=== PATIENT | male | born 1955 | race Caucasian/White ===

== ENCOUNTER 2018-11-14 00:35 | Inpatient (IN) | payer SELFPAY ==
[2018-11-14] MEDS ORDERED: Heparin 25,000 units/D5W 500 ML ONE (00:48)
[2018-11-14] MEDS ORDERED: Insulin Regular 100 units/100 ml in NS IVPB SCH (01:15)
[2018-11-14] MEDS ORDERED: Sodium Chloride 0.9% 1,000 ML IV PRN ×4 (01:32)
[2018-11-14] MEDS ORDERED: Dextrose 5 %-0.45 % NaCl 1,000 ML IV PRN (01:32)
[2018-11-14] MEDS ORDERED: NS 0.9% w/ 20 MEQ KCL 1,000 ML IV PRN ×2 (01:32)
[2018-11-14] MEDS ORDERED: CCU Electrolyte Replacement 1 EACH IVPB ONE (01:32)
[2018-11-14] MEDS ORDERED: Norepinephrine 8 MG/0.9% NS 250 ML IVPB PRN (01:33)
[2018-11-14] MEDS ORDERED: Norepinephrine 8 MG in Dextrose 5% in Water 242 ML IVPB PRN (01:43)
[2018-11-14] MEDS ORDERED: Potassium Chloride 40 MEQ in Sodium Chloride 0.9% 250 ML 250 ML IVPB PRN (01:44)
[2018-11-14] MEDS ORDERED: Potassium Phosphate 12 MMOL in Sodium Chloride 0.9% 250 ML 250 ML IV PRN (01:44)
[2018-11-14] MEDS ORDERED: Magnesium 2 GM/50 ML 2 GM in Premix Bag 1 BAG IVPB PRN (01:44)
[2018-11-14] MEDS ORDERED: Potassium Phosphate 9 MMOL in Sodium Chloride 0.9% 100 ML IVPB PRN (01:44)
[2018-11-14] MEDS ORDERED: Potassium Chloride 20 MEQ TAB PO PRN (01:44)
[2018-11-14] MEDS ORDERED: PHOS-NAK 1 PKT PACK PO PRN ×2 (01:44)
[2018-11-14] MEDS ORDERED: Magnesium Oxide 400 MG TAB PO PRN ×2 (01:44)
[2018-11-14] MEDS ORDERED: Potassium Phosphate 15 MMOL in Sodium Chloride 0.9% 250 ML 250 ML IV PRN (01:44)
[2018-11-14] MEDS ORDERED: Potassium Chloride 40 MEQ in Premix Bag 1 BAG IVPB PRN (01:44)
[2018-11-14] MEDS ORDERED: CCU ELECTROLYTE REPLACEMENT PROTOCOL FS PRN (01:44)
[2018-11-14 01:45] LABS: Anion Gap 21 mmol/L (10-20); BUN (Urea Nitrogen) 41 mg/dL (8.4-25.7); Calc. Creatinine Clearance 0 mL/min (70-130); Calcium 8.4 mg/dL (7.8-10.44); Carbon Dioxide 13 mmol/L (23-31); Chloride 97 mmol/L (98-107); Estimated GFR-MDRD 31; Potassium 3.4 mmol/L (3.5-5.1); Sodium 128 mmol/L (136-145)
[2018-11-14] MEDS ORDERED: HUMULIN R 100 UNITS in Sodium Chloride 0.9% 100 ML IVPB SCH (01:45)
[2018-11-14] MEDS ORDERED: Heparin 10,000 UNITS/ 10 ML VIAL SLOW IVP SCH (01:45)
[2018-11-14] MEDS ORDERED: Heparin 25,000 units/D5W 500 ML IVPB SCH (01:45)
[2018-11-14 01:48] LABS: Glucose 790 mg/dL (80-115)
[2018-11-14 02:20] LABS: Hemoglobin 11.1 g/dL (14.0-18.0); Platelet Count 250 thou/uL (130-400)
[2018-11-14 02:22] LABS: Hemoglobin 11.1 g/dL (14.0-18.0); Mean Corpuscular HGB CONC 32.8 g/dL (32.0-36.0); Mean Corpuscular Hemoglobin 32.2 pg (27.0-31.0); Mean Platelet Volume 7.6 fL (7.4-10.4); Platelet Count 265 thou/uL (130-400); RBC Distribution Width 11.9 % (11.5-14.5); Red Blood Cell (RBC) Count 3.45 mill/uL (4.70-6.10)
[2018-11-14 02:32] LABS: Phosphorus 3.8 mg/dL (2.3-4.7)
[2018-11-14 02:41] LABS: Band 7 % (5-11); Hypochromia SLIGHT = 6-15 cells (100X) (0-5/hpf); Lymphocytes 2 % (21-51); MDiff Complete? YES; Monocytes 3 % (0-10); Neutrophil 88 % (42-75); Platelet Morphology Comment Appears Adequate
[2018-11-14 02:43] LABS: Magnesium 1.8 mg/dL (1.6-2.6)
[2018-11-14 02:46] LABS: ALT (SGPT) 29 U/L (8-55); AST (SGOT) 73 U/L (5-34); Albumin 3.5 g/dL (3.4-4.8); Alkaline Phosphatase 98 U/L (40-150); Anion Gap 21 mmol/L (10-20); BUN (Urea Nitrogen) 41 mg/dL (8.4-25.7); Bilirubin, Direct 0.5 mg/dL (0.1-0.3); Bilirubin, Total 0.7 mg/dL (0.2-1.2); Calc. Creatinine Clearance 0 mL/min (70-130); Calcium 8.7 mg/dL (7.8-10.44); Carbon Dioxide 14 mmol/L (23-31); Chloride 97 mmol/L (98-107); Estimated GFR-MDRD 31; Potassium 3.5 mmol/L (3.5-5.1); Protein, Total 5.5 g/dL (5.8-8.1); Sodium 128 mmol/L (136-145)
[2018-11-14 02:49] LABS: Glucose 784 mg/dL (80-115)
--- NOTE | 2018-11-14 04:08 | HP ---
PRIMARY CARE PHYSICIAN: Out of town. The patient is a [employer] [place]. CHIEF COMPLAINT: Nausea, vomiting and confusion. HISTORY OF PRESENTING ILLNESS: Mr. Marks is a 63-year-old male with past medical history of diabetes and CVA, who presented to the emergency room in [facility] with above-mentioned complaints. History is mainly obtained by discussion with the ER physician as the patient is quite confused and is not able to provide a straight answer to most of my questions. His sisters are present at bedside and they help supplement some of the history. It seems like that Mr. Marks woke up this morning very nauseous and started to throw up. He has been working in the yard for the last 2 or 3 days in the heat. He reports poor appetite and extreme thirst. He did eat some pie today thinking that he might have low blood sugar. He reports compliance with his medications. He denies any fever or chills. He denies any chest pain, but when asked if he had any trouble breathing; he said that yes he did. He denies any swelling or pain in his legs or any recent travel. He has some pain in the right shoulder and complains of dry mouth. He denies any abdominal pain per se or any loose stools. Denies any dizziness or lightheadedness, but his family has noticed that he was very confused. He was brought to the ER at [facility] in [place] and multiple lab abnormalities were found there including a blood sugar over 1000 initially with a repeat blood sugar of 825. His troponin initially was more than 2 and repeat troponin was 5.17. His BUN was 42, creatinine 2.16. Potassium 4.7. Urine had glucose and blood with negative drug screen. His lactic acid was 8.3, ammonia 34. Beta hydroxybutyrate 4.8. His lipase was elevated to 420 and WBCs were 22,000. His chest x-ray did not show any acute changes and a CT scan of the brain was also done, which was once again negative for anything acute. He was initially on Levophed and received 5 L of normal saline, but was eventually weaned off Levophed. Because of the elevated troponin, he was started on heparin drip and was given 325 mg of aspirin. He was also started on insulin drip, because of diabetic ketoacidosis and was given Zosyn given the WBC count of 22,000. Upon presentation to our emergency room, his blood pressure was 110/54 with respirations 18, temperature 98, saturating 98% on room air, heart rate of 94. Blood work was repeated here, which once again confirmed WBCs at 22,000 with 88% neutrophils. Serum chemistry showing blood sugar of 784, creatinine 2.15, sodium 128. Lactic acid 7.3 and repeat troponin of 24,000. Lipase is 435, beta hydroxybutyrate 2.53. He was continued on heparin and insulin drip and is now being admitted to CCU for further evaluation and care. A 12-lead EKG did not show any acute ST or T-wave changes. PAST MEDICAL HISTORY: 1. History of 1 CVA and multiple mini strokes as per the patient. 2. Diabetes mellitus. 3. Hypertension. 4. GERD. PAST SURGICAL HISTORY: 1. Penile implant. 2. Tonsillectomy. PSYCHIATRIC HISTORY: Depression. SOCIAL HISTORY: He smokes one pack of cigarettes per day. He used to drink heavily, but has quit drinking about 3 years ago. He denies any drug abuse. FAMILY HISTORY: Denies any history of pancreatitis or cancer. His father had some sort of heart disease, but they do not really remember what type. ALLERGIES: NO KNOWN MEDICATION ALLERGIES. CURRENT MEDICATIONS: As listed in the ER; 1. Gabapentin 100 mg daily. 2. Sertraline 50 mg daily. REVIEW OF SYSTEMS: A 14-point review of system is done. It is limited because of patient's confusion, but it is largely negative except for those mentioned in the history and physical. LABORATORY DATA: A 12-lead EKG by my review shows sinus tachycardia at 101 beats per minute. QTc interval 479 milliseconds. Left anterior fascicular block. No acute ST or T-wave changes. Beta hydroxybutyrate is 2.53. WBC is 22, with 88% neutrophils, hemoglobin 11.1, platelet count of 265. Serum chemistry shows sodium of 128, chloride 97, bicarb 14, anion gap 21, BUN 41, creatinine 2.15, blood sugar 784. Lactic acid 7.3. Phosphorus and magnesium are normal. AST is slightly elevated to 73, otherwise LFTs are within normal limits. Troponin is 24.95. Lipase 435. PHYSICAL EXAMINATION: VITAL SIGNS: Most recent blood pressure 110/54, pulse of 94, respirations 18, saturating 98% on room air. GENERAL: He is confused, but he is trying to discuss his care, but keeps repeating information about his ex . He is able to follow simple commands and is in no acute distress. He appears somewhat tired and weak. HEENT: Mucous membrane is dry. No oropharyngeal exudate or erythema. Head is normocephalic and atraumatic. Pupils are equal and reactive to light and accommodation. Extraocular movement intact. NECK: Supple without any lymphadenopathy, JVD, or bruit. CHEST: Clear to auscultation without any wheezing, rales, or rhonchi. Rate rhythm is regular without any murmurs, rubs, or gallops. ABDOMEN: Soft, nontender, nondistended with positive bowel sounds. Garcia catheter is in place with clear urine in it. EXTREMITIES: Free of any cyanosis, clubbing, or edema. NEUROLOGICAL: Nonfocal, but he appears to be confused, but he is oriented to self, place and person. SKIN: Free of any rashes or bruises. Feels warm and dry to touch. PSYCHIATRIC: Normal affect. IMPRESSION AND PLAN: 1. Diabetic ketoacidosis. The patient will be continued on insulin drip that was started in the ER. He will be treated as per the diabetic ketoacidosis protocol along with IV fluids, IV insulin with frequent BMP checks and q.1 hour Accu-Cheks. He will be admitted to critical care unit. He will be n.p.o. for now. 2. Non ST elevation myocardial infarction. It is unclear whether this is a demand ischemia from sepsis versus a true type 2 myocardial infarction. He will be continued on heparin drip. We will obtain a transthoracic echo and consult Cardiology in the morning. He does have multiple risk factors and has not had a cardiac workup done. Also, check a BNP. EKG does not show any acute ST elevation myocardial infarction. We will also check a CPK to rule out rhabdomyolysis as a cause of elevated troponin as he has evidence of severe dehydration as well. 3. Acute pancreatitis. We will keep him n.p.o. and give him IV fluids. CT scan cannot be done because of renal insufficiency at this time. We will obtain an abdominal ultrasound to rule out any abscess. We will request consultation with Gastroenterology and obtain a urine drug screen. The patient reports that he has quit drinking about 3 years ago, but he can very well have some liver cirrhosis versus gallbladder stones as a cause of his acute pancreatitis. 4. Sepsis. No clear source of infection is evident at this time. The elevated lactic acid most likely is secondary to ongoing multiple issues including pancreatitis, severe dehydration, diabetic ketoacidosis, and non-ST elevation myocardial infarction. Sepsis workup will be initiated in the form of blood cultures. Rule out abdominal abscess as well. Empiric IV antibiotics will be used for now until sepsis has been ruled out or ruled in. 5. Acute renal insufficiency. This is likely secondary to severe dehydration and diabetic ketoacidosis. He will be resuscitated and we will order a renal ultrasound to rule out any other causes of renal insufficiency. Avoid any nephrotoxic medications and repeat labs in the morning and keep a close eye on it. 6. High anion gap metabolic acidosis. This was due to diabetic ketoacidosis. We will treat the underlying cause. 7. Hyponatremia. This is pseudohyponatremia due to hyperglycemia. We will treat him as per the diabetic ketoacidosis protocol. 8. Tobacco abuse. The patient has been counseled. We will check a urine drug screen as well. 9. Hypotension. At this time a septic versus cardiogenic versus hypovolemic shock is in differential. He will be resuscitated with IV fluids. His blood pressure has much improved. Empiric IV antibiotics have been ordered. We will use Levophed p.r.n. to support his blood pressure, if necessary. I do not suspect adrenal insufficiency at this time. He has no history of same. 10. Diabetes mellitus type 2. As per number #1, he would be on insulin drip for his diabetic ketoacidosis. DISPOSITION: Mr. Marks is currently being admitted to CCU for multiple acute issues. He has high risk of decompensation. I have discussed the care with family at bed side. TIME SPENT: Total time spent in taking care of this patient, 45 minutes. LEVEL OF COMPLEXITY: High. LEVEL OF RISK: High. Job ID: [id number]
[2018-11-14] MEDS: Vancomycin HCl 1 GM in Premix Bag 1 BAG IVPB SCH ×2 (04:41→16:42)
[2018-11-14 05:53] LABS: Anion Gap 16 mmol/L (10-20); BUN (Urea Nitrogen) 40 mg/dL (8.4-25.7); Calc. Creatinine Clearance 46 mL/min (70-130); Calcium 8.7 mg/dL (7.8-10.44); Carbon Dioxide 16 mmol/L (23-31); Chloride 100 mmol/L (98-107); Estimated GFR-MDRD 35; Potassium 3.5 mmol/L (3.5-5.1); Sodium 128 mmol/L (136-145)
[2018-11-14 05:56] LABS: Glucose 689 mg/dL (80-115)
[2018-11-14 06:04] LABS: Bacteria/HPF 1+ HPF (None Seen); Bilirubin Negative (Negative); Blood, Urine 2+ (Negative); Clarity Clear (Clear); Glucose, Urine (Dipstick) Greater than 1000 mg/dL (Negative); Leukocyte Negative Leu/uL (Negative); Nitrite Negative (Negative); Protein, Urine (Dipstick) Negative (Neg-Trace); Squamous Epithelial 0-3 HPF (0-3); Urobilinogen Normal mg/dL (Less than 2); WBC/HPF 21-50 HPF (0-3)
[2018-11-14 06:07] LABS: Urine Culture Reflex Yes Yes
[2018-11-14 06:08] LABS: Amphetamine Not Detected (NotDetected); Barbiturates Screen Not Detected (NotDetected); Benzodiazepine Screen Not Detected (NotDetected); Cocaine Metabolite Screen Not Detected (NotDetected); Medtox Control Line Valid? VALID (VALID); Medtox Reader # READER 1; Methadone Not Detected (NotDetected); Methamphetamine Not Detected (NotDetected); Opiate Screen Not Detected (NotDetected); Oxycodone Screen Not Detected (NotDetected); Phencyclidine (PCP) Not Detected (NotDetected); THC/Cannabinoid Screen Not Detected (NotDetected); Tricyclic Screen Not Detected (NotDetected)
[2018-11-14] MEDS: Piperacillin/Tazobactam 3.375 GM in Sodium Chloride 0.9% 100 ML IVPB SCH ×4 (06:12→23:11)
[2018-11-14 06:28] LABS: Lactic Acid 3.1 mmol/L (0.5-2.2)
[2018-11-14 06:31] LABS: Glucose 593 mg/dL (80-115)
--- NOTE | 2018-11-14 08:26 | ULT ---
PRELIMINARY REPORT/[facility]/EMERGENCY AFTER HOURS PROCEDURE: EXAM: US Abdomen Limited, Right Upper Quadrant EXAM DATE/TIME: 11/14/2018 1:59 AM CLINICAL HISTORY: 63 years old, male; Nausea and vomiting; Abdominal pain; Generalized TECHNIQUE: Imaging protocol: Real-time ultrasound of the abdomen with image documentation. Examination was focus ed on the right upper quadrant. COMPARISON: No relevant prior studies available. FINDINGS: Liver: Normal. No masses. Gallbladder: There is gallbladder with thickening/pericholecystic fluid measuring up to 6 mm. A posit nely sonographic Do sign is reported. No cholelithiasis. Common bile duct: CBD measures 3 mm in diameter. Pancreas: Pancreas is poorly visualized. Right kidney: Right kidney measures 11.4 x 4.7 x 5.9 cm. IMPRESSION: Pericholecystic fluid with positive sonographic Do sign suspicious for acute cholecystitis. No ch olelithiasis is visualized. Thank you for allowing us to participate in the care of your patient. Dictated and Authenticated by: Rusty Tapia MD 11/14/2018 3:22 AM Central Time ([place] & [place]) FINAL REPORT EMERGENCY AFTER HOURS GALLBLADDER ULTRASOUND: FINDINGS/IMPRESSION: I agree with the preliminary report given by Dr. Rusty Tapia of [facility]. POS: [facility]
[2018-11-14] MEDS: D5 1/2 NS w/20 mEq KCL 1,000 ML IV PRN ×2 (08:59→13:44)
--- NOTE | 2018-11-14 09:34 | CON ---
DATE OF CONSULTATION: HISTORY OF PRESENT ILLNESS: The patient is an unfortunate 63-year-old gentleman, who presented with nausea, vomiting, who was noted to have elevated cardiac enzymes. The patient has a previous history of multiple cerebrovascular accidents. Unfortunately, the patient has not had a close medical care. He was in his usual state of health when he started feeling more nauseated and he started vomiting. He came to the emergency room for evaluation to have marked hyperglycemia. The patient denied having any chest discomfort. He reports recently stopping taking his aspirin. PAST MEDICAL HISTORY: 1. CVA. 2. Hypertension. 3. Diabetes mellitus. 4. reflux. PAST SURGICAL HISTORY: He has had penile surgery and tonsillectomy. SOCIAL HISTORY: The patient smokes 1 pack per day. ALLERGIES: NO KNOWN DRUG ALLERGIES. MEDICATIONS: Gabapentin 100 daily, sertraline 50 daily. PHYSICAL EXAMINATION: GENERAL: This is a well-developed gentleman, in no acute distress. VITAL SIGNS: Blood pressure is 100/58. NECK: Showed no jugular venous distention. LUNGS: Clear to auscultation. HEART: Regular rate and rhythm. Normal S1 and S2. 1/6 systolic murmur. ABDOMEN: Nondistended. EXTREMITIES: Showed trace edema. LABORATORY DATA: Sodium 128, potassium 3.5, chloride 100, bicarbonate 16, BUN 40, creatinine 1.95, glucose 593. His troponin was 44.1. His white blood cell count was 22.0, hemoglobin 11.1, hematocrit 33.8, platelets 265. His PTT was 69.5. IMAGING STUDIES: His EKG revealed normal sinus rhythm with left anterior fascicular block. IMPRESSION: 1. Myocardial infarction . 2. Diabetic ketoacidosis. 3. Sepsis. 4. Diabetes mellitus. 5. History of cerebrovascular accident. 6. Hypertension. 7. Pancreatitis. 8. Renal insufficiency. 9. Tobacco abuse. 10. Depression. This gentleman presents with a non-Q-wave myocardial infarction. He has diabetic ketoacidosis and pancreatitis. He has not been receiving any p.o. medication. At this time, would give him aspirin per rectum. Gastrointestinal evaluation is pending. We will check an echocardiogram. The patient will continue on heparin. We will proceed with cardiac catheterization when the patient stabilizes. The patient's prognosis is guarded. We will follow this patient with you through his hospitalization. Critical care note time 30 minutes. Job ID: [id number]
[2018-11-14] MEDS ORDERED: Aspirin 300 MG Suppository PR SCH (09:45)
--- NOTE | 2018-11-14 10:21 | CT ---
CT BRAIN WITHOUT CONTRAST: HISTORY:CVA in the past. Neurologic deficit. COMPARISON:None FINDINGS: There are foci of decreased attenuation in the periventricular white matter, consistent with chronic small vessel ischemic disease. There is an old lacunar infarction in the left side of the pratima. No evidence of acute infarct, hemorrhage, midline shift or abnormal extra-axial fluid collections is seen. The ventricular size is appropriate and the basilar cisterns are patent. The bony calvarium is intact. There is mucosal disease in the paranasal sinuses. IMPRESSION: No CT evidence of acute intracranial process.
--- NOTE | 2018-11-14 10:28 | ULT ---
BILATERAL RENAL ULTRASOUND COMPLETE: Date: 11/14/18 HISTORY: WICHO (acute kidney injury). COMPARISON: None. FINDINGS: Right kidney measures 12.1 x 5.7 x 5.6 cm. Left kidney measures 11.5 x 6.9 x 5.6 cm. No renal hydronephrosis. Urinary bladder is unremarkable with a Garcia catheter in place, being nearly empty. IMPRESSION: Unremarkable bilateral renal ultrasound. No renal hydronephrosis. POS: [facility]
[2018-11-14 10:38] LABS: Anion Gap 14 mmol/L (10-20); BUN (Urea Nitrogen) 35 mg/dL (8.4-25.7); Calc. Creatinine Clearance 56 mL/min (70-130); Calcium 8.6 mg/dL (7.8-10.44); Carbon Dioxide 18 mmol/L (23-31); Chloride 106 mmol/L (98-107); Estimated GFR-MDRD 45; Glucose 456 mg/dL (80-115); Potassium 3.7 mmol/L (3.5-5.1); Sodium 134 mmol/L (136-145)
[2018-11-14] MEDS: NS 0.9% w/ 20 MEQ KCL 1,000 ML IV SCH ×2 (18:38→22:21)
[2018-11-14] MEDS ORDERED: Dextrose 50% Abboject 50 ML SYRINGE IVP PRN (18:52)
[2018-11-14] MEDS ORDERED: Dextrose 5% in Water 1,000 ML IV PRN (18:52)
[2018-11-14] MEDS ORDERED: Lorazepam 0.5 MG TAB PO PRN (19:42)
[2018-11-14] MEDS: Insulin Glargine 10 UNITS in Pre-Filled Syringe SC SCH (20:25)
[2018-11-14] MEDS: Atorvastatin Calcium 40 MG TAB PO SCH (20:25)
[2018-11-15 02:20] LABS: Vancomycin, Trough 8.8 ug/mL
[2018-11-15 02:37] LABS: Anion Gap 12 mmol/L (10-20); BUN (Urea Nitrogen) 22 mg/dL (8.4-25.7); Calc. Creatinine Clearance 78 mL/min (70-130); Calcium 8.9 mg/dL (7.8-10.44); Carbon Dioxide 18 mmol/L (23-31); Chloride 111 mmol/L (98-107); Estimated GFR-MDRD 65; Glucose 281 mg/dL (80-115); Sodium 136 mmol/L (136-145)
[2018-11-15] MEDS: Vancomycin HCl 1 GM in Premix Bag 1 BAG IVPB SCH (03:17)
--- NOTE | 2018-11-15 03:26 | CON ---
DATE OF CONSULTATION: HISTORY OF PRESENT ILLNESS: Mr. Marks is a 63-year-old male, who has had diabetes since he was in his early 20s. He says he misplaced his Accu-Chek device. His reports that he is noncompliant with monitoring glucoses. He presented with severe hyperglycemia and a metabolic acidosis consistent with DKA. His mental status is improving in his lab work is improving. He remains on insulin drip. He is admitted to the critical care unit. PAST MEDICAL HISTORY: Remarkable for; 1. CVA. 2. History of tobacco use in spite of multiple central nervous system vascular events and diabetes for essentially 35 years. 3. Hypertension. 4. Reflux disease. 5. History of tonsillectomy. 6. History of depression. 7. History of heavy alcohol use in the past, none for 3 years. Reportedly, he is not a drug user. He is a smoker. 8. Elevated lipase associated with DKA FAMILY HISTORY: Negative for lung disease in early age. ALLERGIES: REPORTS NO DRUG ALLERGIES. MEDICATIONS: Prior to admission are Zoloft and gabapentin presumably for peripheral neuropathy. There is no mention of insulin on the H and P, but the family says he is supposed to be on insulin. REVIEW OF SYSTEMS: Otherwise negative, although not entirely reliable. PHYSICAL EXAMINATION: GENERAL: He is in no distress. HEENT: Pupils are equal. Sclerae are anicteric. NECK: Supple. VITAL SIGNS: Heart rates in the 80s, blood pressure 107/61, respiratory rates in the teens, oximetry is 99. LUNGS: Clear. HEART: Regular rhythm. S1 and S2 are normal. ABDOMEN: Soft and nontender. EXTREMITIES: Without clubbing, cyanosis, or edema. NEURO: Grossly nonfocal. LABORATORY DATA: Hemoglobin is 11.1, white count 22, platelets 250. Sodium 134 , potassium 3.7, chloride 106, bicarb 18, BUN 35, creatinine 1.58. IMPRESSION: 1. Diabetic ketoacidosis. 2. Hyperosmolar hyperglycemia. 3. Acute on chronic kidney disease. 4. Probable peripheral neuropathy. 5. Ongoing tobacco use in spite of multiple central nervous system vascular events. 6. History of stroke and transient ischemic attacks in the past. 7. Noncompliance with medical management of his diabetes. I am amazed he has not lost legs at this point or developed renal failure. PLAN: We will continue to follow along with the other physicians caring for him while he is in the Critical Care Unit. I think maybe within 24 hours, he will be a candidate to transfer out of the ICU. Job ID: [id number] [id number]
[2018-11-15] MEDS: Piperacillin/Tazobactam 3.375 GM in Sodium Chloride 0.9% 100 ML IVPB SCH ×2 (05:44→11:51)
[2018-11-15] MEDS: Insulin Regular 300 UNITS/3 ML VIAL SC PRN ×4 (06:11→20:59)
[2018-11-15] MEDS ORDERED: Communication Order-Pharmacy FS SCH (08:30)
[2018-11-15] MEDS: Aspirin 81 mg Enteric Coated Tablet PO SCH (08:36)
[2018-11-15] MEDS: Insulin Glargine 10 UNITS in Pre-Filled Syringe SC SCH (08:37)
--- NOTE | 2018-11-15 09:02 | CON ---
DATE OF CONSULTATION: 11/14/2018 REASON FOR CONSULTATION: Nausea, vomiting, and evidence of pancreatitis on blood testing. HISTORY OF PRESENT ILLNESS: Mr. Michel Marks is a 63-year-old male, who is known to have diabetes mellitus for many years. The patient does take insulin. He says he is very poorly compliant and non-disciplined in terms of his medicinal intake. The patient developed nausea and vomiting yesterday morning and was brought to ER in [place]. The patient was found to have evidence of diabetic ketoacidosis. Blood sugars were more than 1000, he was acidotic. He also had a serum lipase . He also has had elevated troponin level and had EKG done and was found to have evidence of non-STEMI myocardial infarction. He has been seen by Dr. Greg Fuchs, Cardiology Service. The plan is being made to do a cardiac catheterization when he is stable. In terms of diabetes, it is a kind of uncontrolled and is still on IV fluids. He is awake, alert, communicative. He denies abdominal pain or nausea or vomiting today. He says he was not having abdominal pain before. The patient actually would likely to eat or drink something as he feels hungry. 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 Blood sugar was more than 1000 on admission. Today, the Chem panel shows blood sugar is coming to around 284 today. His lipase is coming down to 347. Lytes are serum sodium 134, potassium 3.7, chloride 106, bicarb 18, BUN is 34, creatinine 1.58, calcium 8.6. Troponin is very high at 44.170. CPK 927, AST 73, ALT 29. The patient was seen in the room along with the patient's family. The family tells me he stopped drinking completely 2 years ago. He does not drink for 2 years. Before that he has history of alcohol intake and alcohol abuse for many years. The patient had abdominal sonogram on admission because of elevated lipase. The sonogram showed thickening of gallbladder wall, but no gallstones seen. The pancreas was poorly visualized. The patient has no prior history of any pancreatitis. He denies abdominal pain, nausea, or vomiting in the past. He also has no history of heart disease from before and he says he had an EKG done and the EKG was noted to be normal in the past but some time ago. At the time of the consultation, he appears very comfortable. He is awake, alert, and communicative. Denies any chest pain, abdominal pain, nausea, or vomiting. ALLERGIES: NONE. SOCIAL HISTORY: The patient smokes 1/2 packet of cigarettes per day. Used to drink alcohol, he completely stopped drinking 2 years ago as per the patient's sister. No history of drug abuse. MEDICAL ILLNESSES: 1. History of CVA with multiple mini strokes in the past. 2. Diabetes mellitus. 3. Hypertension. 4. Chronic acid reflux. PAST SURGICAL HISTORY: 1. Penile implant. 2. Tonsillectomy. PSYCHIATRIC HISTORY: History of depression. FAMILY HISTORY: Father with heart disease. No family history of any colon cancer or any malignancy. No history of any CVA or heart attack. MEDICATIONS: Medication list reviewed, which includes; 1. Gabapentin. 2. Zoloft 50 once a day. REVIEW OF SYSTEMS: Ten-point system reviewed; CONSTITUTIONAL: No history of any fever. His energy level is good, but he has history of weight loss of nearly 100 pounds over the last year or so. HEAD: No chronic headache. Positive history of TIA. No history of syncope. No dizziness. ENT: No impaired vision. No hearing loss. No nose bleeds. No sore throat or dysphagia. NECK: No stiffness or pain. CARDIOVASCULAR SYSTEM: No chest pain. No palpitation. No dyspnea, orthopnea, or PND. RESPIRATORY SYSTEM: No history of any chronic coughing, hemoptysis, or dyspnea. GI: No abdominal pain. No nausea or vomiting. : No dysuria or hematuria. MUSCULOSKELETAL: Nonrelevant. NEUROENDOCRINE: Nonrelevant. PSYCHIATRIC: History of depression. PHYSICAL EXAMINATION: GENERAL: He is awake, alert, and communicative. He is in no acute distress. VITAL SIGNS: Very stable. Pulse is 88, blood pressure 110/70. HEENT: Conjunctivae are clear. NECK: Supple. No adenitis or thyromegaly noted. CARDIOVASCULAR: First and second heart sounds are normal. LUNGS: Clear to auscultation. ABDOMEN: Soft. Abdomen is nondistended. Abdomen is nontender. No organomegaly or masses. Bowel sounds normal. EXTREMITIES: Reveal no edema. CENTRAL NERVOUS SYSTEM: Grossly within normal limits. LABORATORY DATA: The admitting labs are markedly abnormal. He was severely acidotic with a CO2 of 14, BUN was 41, creatinine 2.15. Lytes, sodium 128, potassium 3.5, chloride 97, glucose was more than 784, lactic acid 7.3, calcium 8.7, bilirubin is 0.7, AST slightly high at 73, ALT 29, alkaline phosphatase 98. Troponin was very high at 24.950, gone up to 44. EKG does show evidence of non-STEMI myocardial infarction. CLINICAL IMPRESSION: 1. Diabetic ketoacidosis, resolving. 2. Elevated lipase, most likely from diabetic ketoacidosis elevation of the pancreatic enzymes. At the present time, he has no signs or symptoms of pancreatitis. 3. Non-ST myocardial infarction, seen by Cardiology. 4. Volume depletion. 5. History of alcohol abuse. RECOMMENDATIONS: 1. Discontinue n.p.o. 2. Clear liquid diet. 3. Advance diet as tolerated. From GI standpoint, I do not feel he has acute pancreatitis. Presently his symptoms seem consistent more with uncontrolled diabetes and also myocardial infarction. I will follow along with you for the next couple of days and see if he has any GI symptoms. If he tolerates clear liquid diet, I will advance diet to a diabetic diet later on today or tomorrow morning. Job ID: [id number]
--- NOTE | 2018-11-15 11:48 | PRG ---
DATE OF SERVICE: 11/15/2018 SUBJECTIVE: Mr. Marks still is a little dysarthric. OBJECTIVE: VITAL SIGNS: Heart rate in the 70s, blood pressure 117/78, respiratory rate in the teens, and oximetry is 97%. GENERAL: His diet is being advanced to a diabetic diet. LUNGS: Clear. HEART: Regular rhythm. S1 and S2 are normal. ABDOMEN: Soft and nontender. EXTREMITIES: Without edema. NEUROLOGIC: Grossly nonfocal. LABORATORY DATA: Sodium 136, potassium 5, chloride 111, bicarb 18, BUN 22, creatinine 1.14, and glucose 281. IMPRESSION: 1. Status post hyperosmolar coma. 2. Diabetic ketoacidosis. 3. Hyperchloremic acidosis now secondary to volume resuscitation, less likely renal tubular acidosis. 4. Marginal compliance to management of his diabetes. He is stable to move out of the critical care unit in my opinion. Apparently, the manager sustainability want to perform cardiac catheterization tomorrow. Job ID: [id number]
--- NOTE | 2018-11-15 12:29 | PDOC.HOSPP ---
- Subjective Subjective: 64 y/o male with prior multiple CVA's, DM and others admitted due to intractable nausea and vomiting associated with AMS and ill feeling. Found to have hypotension, hyperglycemia blood glucose above 1000, WICHO and with elevated Lipase and troponin. Treated with IVF, pressors, and insulin infusion with improvement. Feeling better and complains of hunger. No fever, chest pain, paplpitation or hematesis or dysuria. - Objective Vital Signs & Weight: Vital Signs (12 hours) Temp 11/15/18 08:00 99.3 F 11/15/18 04:00 98.6 F Weight Weight 179 lb 0.246 oz Most Recent Monitor Data Heart Rate from ECG 80 NIBP 115/65 NIBP BP-Mean 81 Respiration from ECG 19 SpO2 98 I&O: 11/14/18 11/15/18 11/16/18 06:59 06:59 06:59 Intake Total 324 5140 1034 Output Total 700 4410 590 Balance -376 730 444 Result Diagrams: 11/14/18 01:53 11/15/18 01:54 Additional Labs: Accuchecks 11/15/18 11/15/18 11/14/18 09:16 06:09 20:19 POC Glucose 312 H 276 H 183 H 11/14/18 11/14/18 11/14/18 18:35 17:32 16:30 POC Glucose 174 H 258 H 271 H 11/14/18 11/14/18 11/14/18 15:14 13:44 12:39 POC Glucose 320 H 284 H 414 H ROS - Review of Systems All systems: All other ROS were reviewed and found negative. - Medication Medications: Active Medications Generic Name Dose Route Start Last Admin Trade Name Freq PRN Reason Stop Dose Admin Aspirin 81 mg 11/15/18 09:00 11/15/18 08:36 Ecotrin PO 81 mg DAILY GABRIEL Administration Atorvastatin Calcium 40 mg 11/14/18 21:00 11/14/18 20:25 Lipitor PO 40 mg HS GABRIEL Administration Heparin Sodium/Dextrose 500 mls @ 0 mls/hr 11/14/18 01:45 11/15/18 05:43 Heparin 25,000 Units/D5w 500 Ml IVPB 500 mls INF GABRIEL Administration Protocol Per Protocol Insulin Human Regular 0 units 11/14/18 18:52 11/15/18 06:11 Humulin R SC 6 units .MODERATE SLIDING SC PRN Administration MODERATE SLIDING SCALE Protocol Lorazepam 0.5 mg 11/14/18 19:42 11/14/18 20:25 Ativan PO 11/15/18 19:43 0.5 mg ONE PRN Administration Anxiety/Agitation Sertraline HCl 200 mg 11/15/18 09:00 11/15/18 10:15 Zoloft PO 200 mg DAILY GABRIEL Administration Sodium Chloride 10 ml 11/14/18 09:00 11/15/18 10:16 Flush - Normal Saline IVF 10 ml Q12HR GABRIEL Administration - Exam awake alert Eye: PERRL, anicteric sclera ENT: normocephalic atraumatic Neck: symmetric, no JVD Heart: RRR Respiratory: CTAB, no wheezes, no rales, no ronchi Gastrointestinal: soft, non-tender, non-distended, normal bowel sounds Extremities: no cyanosis, no clubbing, no edema Neurological: CN's grossly intact, no focal deficits (mild dysarrthria noted) Psychiatric: normal affect Hosp A/P (1) Hypotension Status: Acute (2) SIRS (systemic inflammatory response syndrome) Code(s): R65.10 - SIRS OF NON-INFECTIOUS ORIGIN W/O ACUTE ORGAN DYSFUNCTION Status: Acute (3) Acute non-ST elevation myocardial infarction (NSTEMI) Code(s): I21.4 - NON-ST ELEVATION (NSTEMI) MYOCARDIAL INFARCTION Status: Acute (4) Elevated lipase Code(s): R74.8 - ABNORMAL LEVELS OF OTHER SERUM ENZYMES Status: Acute (5) Dehydration with hyponatremia Code(s): E87.1 - HYPO-OSMOLALITY AND HYPONATREMIA Status: Acute (6) WICHO (acute kidney injury) Code(s): N17.9 - ACUTE KIDNEY FAILURE, UNSPECIFIED Status: Acute (7) DKA (diabetic ketoacidoses) Code(s): E11.10 - TYPE 2 DIABETES MELLITUS WITH KETOACIDOSIS WITHOUT COMA Status: Acute (8) Hyperglycemia Code(s): R73.9 - HYPERGLYCEMIA, UNSPECIFIED Status: Acute (9) Hyperchloremic acidosis Code(s): E87.2 - ACIDOSIS Status: Acute (10) Acute metabolic encephalopathy Code(s): G93.41 - METABOLIC ENCEPHALOPATHY Status: Acute - Plan Change IV fluid to bicarb containing fluid. Increase lantus to 20 unit bid. DC antibiotics. Advance diet as tolerated. Appreviate GI and cardiology input. For Cardiac cath tomorror. Continue antithrombotic therapy with ASA and heparin infusion. Monitor C/C and BMP
[2018-11-15] MEDS ORDERED: [UNRECOGNIZED DRUG - OTHER] SC SCH (12:30)
[2018-11-15] MEDS ORDERED: INSULIN GLARGINE SC SCH (12:30)
[2018-11-15] MEDS: Sodium Bicarbonate 75 MEQ in Sodium Chloride 0.45% 1,000 ML IV SCH (17:14)
--- NOTE | 2018-11-15 18:35 | PRG ---
DATE OF SERVICE: 11/15/2018 SUBJECTIVE: This is a 63-year-old hospitalized with uncontrolled diabetes mellitus, diabetic ketoacidosis. He was also found to have evidence of acute MA by elevated troponin level on EKG. He was seen by Cardiology. He did not have any chest pain or any difficulty breathing. There is no abdominal pain. No nausea or vomiting. His blood sugar is markedly improved today. LABORATORY DATA: From today shows lytes are normal. CO2 is 18, BUN is 22, creatinine is 1.14, glucose is 281, and calcium 8.9. PHYSICAL EXAMINATION: GENERAL: Appears comfortable. VITAL SIGNS: Stable. CARDIOVASCULAR AND LUNGS: Within normal limits. ABDOMEN: Soft. No organomegaly. No tenderness. No masses. RECOMMENDATIONS: 1. Advance diet to a diabetic diet. 2. We will sign off from today. If he has any GI problems, please call me back. Job ID: [id number]
[2018-11-15] MEDS: Insulin Glargine 20 UNITS in Pre-Filled Syringe 1 EACH SC SCH (20:56)
[2018-11-15] MEDS: Atorvastatin Calcium 40 MG TAB PO SCH (20:56)
[2018-11-15] MEDS: Lorazepam 0.5 MG TAB PO PRN (21:58)
[2018-11-16] MEDS: Sodium Bicarbonate 75 MEQ in Sodium Chloride 0.45% 1,000 ML IV SCH (01:39)
[2018-11-16] MEDS ORDERED: Aspirin 81 mg Enteric Coated Tablet ONE (05:45)
[2018-11-16] MEDS: Aspirin 81 mg Enteric Coated Tablet PO SCH (05:47)
[2018-11-16 05:50] LABS: #Eosinphils 0.1 thou/uL (0.0-0.7); #Lymphocytes 1.5 thou/uL (1.20-3.40); #Monocytes 0.6 thou/uL (0.11-0.59); #Neutrophils 6.9 thou/uL (1.40-6.50); %Basophils 0.2 % (0.0-1.0); %Eosinophils 0.8 % (0.0-10.0); %Lymphocytes 16.8 % (21.0-51.0); %Neutrophils 76.1 % (42.0-75.0); Hemoglobin 10.7 g/dL (14.0-18.0); Mean Corpuscular HGB CONC 34.1 g/dL (32.0-36.0); Mean Corpuscular Hemoglobin 32.3 pg (27.0-31.0); Mean Corpuscular Volume 94.8 fL (78.0-98.0); Mean Platelet Volume 7.4 fL (7.4-10.4); Platelet Count 188 thou/uL (130-400); White Blood Cell (WBC) Count 9.1 thou/uL (4.8-10.8)
[2018-11-16 06:12] LABS: Anion Gap 9 mmol/L (10-20); BUN (Urea Nitrogen) 11 mg/dL (8.4-25.7); Calc. Creatinine Clearance 120 mL/min (70-130); Calcium 8.7 mg/dL (7.8-10.44); Carbon Dioxide 28 mmol/L (23-31); Chloride 108 mmol/L (98-107); Estimated GFR-MDRD Greater than 90; Glucose 148 mg/dL (80-115); Potassium 3.5 mmol/L (3.5-5.1); Sodium 141 mmol/L (136-145)
[2018-11-16 06:32] LABS: Magnesium 1.7 mg/dL (1.6-2.6)
[2018-11-16] MEDS ORDERED: Fentanyl 100 MCG/2 ML VIAL ONE (08:35)
[2018-11-16] MEDS ORDERED: Midazolam HCl 2 mg/2 ml Vial ONE (08:35)
[2018-11-16] MEDS ORDERED: Lidocaine 1% (PF) 30 ML VIAL ONE (08:35)
[2018-11-16] MEDS ORDERED: Iopamidol 370 76% 100 ML VIAL ONE (11:00)
[2018-11-16] MEDS: Insulin Glargine 20 UNITS in Pre-Filled Syringe 1 EACH SC SCH ×2 (13:11→21:01)
[2018-11-16] MEDS ORDERED: Sodium Chloride 0.45% 1,000 ML IV SCH (14:45)
[2018-11-16] MEDS: Carvedilol 6.25 MG TAB PO SCH (16:33)
[2018-11-16] MEDS: Insulin Regular 300 UNITS/3 ML VIAL SC PRN (16:33)
--- NOTE | 2018-11-16 17:20 | PRG ---
DATE OF SERVICE: 11/16/2018 SUBJECTIVE: Michel Marks is little less dysarthric again today. OBJECTIVE: VITAL SIGNS: He is afebrile. Heart rate is in the 70s, blood pressure 149/81, and respiratory rate 18. LUNGS: Clear. HEART: Regular rhythm. S1 and S2 are normal. ABDOMEN: Soft and nontender. EXTREMITIES: Without edema. LABORATORY DATA: White count 9.1, hemoglobin 10.7, and platelets 188. Sodium 141, potassium 3.5, chloride 108, bicarb 28, BUN 11, and creatinine 0.74. IMPRESSION: 1. Status post presentation with hyperosmolar hyperglycemia mixed with diabetic ketoacidosis. 2. Tobacco use up until this admission. 3. History of cerebrovascular accident in the past. 4. Coronary artery disease, felt to be amenable to bypass. PLAN: 1. I would recommend that he be more independent ambulatory, to be off cigarettes for 1 to 2 weeks, and have a better glucose control for a prolonged period of time before we proceed with surgery if indicated. I will order pulmonary function tests. 2. He will continue physical therapy post monitoring glucoses. I have explained to him that if he plans to continue smoking, there is a high likelihood of graft closure. He says he has quit for 8 years before in the past. He thinks he can quit again. Continue to follow. Job ID: [id number]
--- NOTE | 2018-11-16 18:04 | CON ---
DATE OF CONSULTATION: 11/16/2018 REQUESTING PHYSICIAN: Dr. Fuchs. OTHER CONSULTING PHYSICIANS: 1. Dr. Hernandez. 2. Dr. Bear. CHIEF COMPLAINT: Nausea, vomiting, and altered mental status. HISTORY OF PRESENT ILLNESS: The patient is a 63-year-old diabetic man, who smokes. He describes having had 3 strokes in the past, the first being on the order of about 10 years ago. He has been diabetic since his 20s, but about 2 years ago when he went through divorce and lost his insurance through his 's job at [employer], he has not been able to be regularly compliant with medicines , although physician whom he is known for a long time has been willing to see him as an outpatient. He had been doing a lot of work out in the heat for a couple of days, and on the day of presentation woke up quite nauseated. He experienced vomiting through the course of the day, and when he started to become rather lethargic and confused, his family took him to the nearest facility, the [facility] in [place]. There, he was arousable, but quite obviously confused, and his initial blood sugar on screening labs was 1003. A troponin on the same screening labs was 2.48. His lactate was 8.4, beta-hydroxybutyrate was 4.8, lipase 420, and his toxicology screen was negative. His troponin karen on followup labs while he was being stabilized in the emergency room there, and he was transferred here. He was initially hypotensive and required pressor support while he was fluid resuscitated. His metabolic derangements have significantly improved. His echocardiogram demonstrated mildly decreased LVEF and apical akinesis, and with normalized renal function, he was taken to the catheterization lab today for cardiac catheterization, that demonstrated severe left-sided disease and decreased LV function. PAST MEDICAL HISTORY: Significant for long-standing diabetes, cerebrovascular disease with what sounds like left hemispheric strokes starting about 10 years ago. The patient describes dysarthria and right arm and leg weakness. History from the patient, from his sister, and from his son gives varying reports as to whether he has deliberate, somewhat dysarthric speech now, he is back to his baseline about whether his right-sided strength is really back to baseline, and whether he has transient exacerbations of any of these deficits. He has hypertension and GE reflux disease and reports a past history of depression. He has had a tonsillectomy and penile prosthesis. SOCIAL HISTORY: The patient admits to half to one pack of cigarettes a day. His son interjected that the patient's breathing varies according to how many packs of cigarettes he smokes a day. The patient reportedly drank heavily in the past, but quit about 3 years ago. HOME MEDICATIONS: His home medications with which he is poorly compliant are: 1. Norvasc 5 mg a day. 2. Lisinopril 10 mg a day. 3. Zoloft 200 mg at bedtime. 4. Neurontin 100 mg a day. 5. Novolin 70/30. He is unsure as of the dose. He thinks it is 40 units a day. Currently, he is on: 1. Baby aspirin. 2. Lipitor 40 mg a day. 3. Coreg 6.25 mg a day. 4. Sliding scale insulin. ALLERGIES: HE DENIES ANY MEDICAL ALLERGIES. FAMILY HISTORY: Significant for heart disease in his father. REVIEW OF SYSTEMS: He is equivocal about exacerbations of his dysarthria. The patient denies any orthopnea or dependent edema. He does report some shortness of breath on exertion lately, but denies any chest pain and does not remember having any chest pain associated with this episode. The sister interjects that he drags his right leg a little bit. PHYSICAL EXAMINATION: GENERAL: He is a fairly fit-appearing man, who has deliberate, slightly dysarthric speech. HEENT: He has no obvious xanthelasma. NECK: No JVD. No carotid bruits. CHEST: Clear to auscultation. He has some mildly decreased force of exhalation when I asked him to blow out hard against my hand. HEART: He has regular rate and rhythm without obvious murmur or gallop. ABDOMEN: Soft and nontender. EXTREMITIES: He has easily palpable radial, femoral, and dorsalis pedis pulses. He has palpable popliteal pulses. He has no clubbing, cyanosis, or edema. He has some vitiligo on his upper thighs and on his feet. NEUROLOGIC: Cranial nerves 2 through 12 are grossly intact. Upper and lower extremity strength is grossly normal when testing in the bed. LABORATORY DATA: His white count was 22,000 with 88% polys, 7% bands, and 2% lymphocytes; hemoglobin 11.0; hematocrit 33.8; and platelets 265,000 on his initial labs at [facility]. Blood cultures drawn at [facility] on the night of the , are no growth so far. His initial glucose there was 1003. Sodium 122 , potassium 6.0, BUN 45, and creatinine 2.50. Lactate was 8.4. Beta- hydroxybutyrate 4.8. Troponin 2.48. Alcohol was undetectable. Tox screen was negative. Lipase was 420. LFTs were normal. Urinalysis had a pH of 5.0, specific gravity 1.010, greater than 1000 mg% of glucose, but negative dipstick for ketones. Chest x-ray there showed slightly prominent vascular markings, small cardiac silhouette, and some exostoses associated with anterior portions of the first ribs. He had some improvement in his blood sugar, and his potassium came down to 4.7 on followup labs, and then here at [facility], his initial blood sugar was 790, BUN 41, creatinine 2.158. Lactate 7.3. Beta-hydroxybutyrate 2.53. Lipase 435. BNP 187.9. Troponin 24.950 at 0435. On the morning of the , it was 44.170. CPK coincident with the troponin of around 25 was 927. During the day of the , his blood sugars came down into the 175 to 275 range. Yesterday morning, his glucose was 281, BUN 22, creatinine 1.14; and this morning, glucose is 148, BUN 11, creatinine 0.74, calcium 8.7, and phosphorus 1.7. His blood sugars are still running in the 170 to 315 range commonly. His cardiac catheterization shows a right-dominant system with a relatively small distal vessels. There is some luminal irregularity in the right coronary proper , and about a 90% lesion in the PDA. 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 He has a ramus vessel with a long lesion, that varies from 70% to 90% stenosis. He has a subtotal lesion in the circumflex with some luminal irregularity prior to a bifurcation point in it with the obtuse marginals beyond that being relatively small, but associated with some proximal luminal irregularity. LVEF is around 30% or 35% with hypokinesis of the apex proper and akinesis of the inferior wall towards the apex. LV pressure was 129/11 with an EDP of 20. Aortic pressure on pullback was 126/69. The patient is 5 feet 11 inches, weighs 179 pounds. On initial check-in at [facility], his heart rates were around 100. Blood pressures were in the 70s to 90s systolic. With pressor support and fluid resuscitation, his heart rate stayed around 100, but his systolic blood pressures came up to the 115 to 130 range. Now, there are running around the heart rate of 75 and the blood pressures of 140 to 160 over 75 to 100. Urine output has been quite brisk. IMPRESSION AND RECOMMENDATIONS: Three-vessel coronary artery disease with mildly decreased left ventricular function. The patient has gone through a significant metabolic derangement with hypermetabolic state, some elevated beta- hydroxybutyrate, but no ketones spilled into his urine on dipsticks. He is finally beginning to normalize. It is unclear whether his dysarthria is really back to baseline. It is probably worth checking a carotid ultrasound to screen for underlying carotid disease. Coronary artery bypass grafting, I think, would be appropriate. The issue, however, is timing. On discussions with Dr. Hernandez, who has cared for him over the last few days, he thinks that he initially was sick enough from his metabolic derangements that it may be prudent to wait a week or 2 before undertaking a pump run. As long as he remains stable, I think that is probably a good recommendation. Job ID: [id number] [facility]
--- NOTE | 2018-11-16 18:09 | PDOC.HOSPP ---
- Subjective Subjective: 64 y/o male with prior multiple CVA's, DM and others admitted due to intractable nausea and vomiting associated with AMS and ill feeling. Found to have hypotension, hyperglycemia blood glucose above 1000, WICHO and with elevated Lipase and troponin. Treated with IVF, pressors, and insulin infusion with improvement. Had cardiac cath earlier today which showed severe multiple vessel disease and CTS consult has been requested for possible CABG. No new problem.. - Objective Vital Signs & Weight: Vital Signs (12 hours) Temp 11/16/18 16:00 98.7 F 11/16/18 10:37 97.9 F 11/16/18 09:00 98.9 F Weight Weight 179 lb 0.246 oz Most Recent Monitor Data Heart Rate from ECG 74 NIBP 143/82 NIBP BP-Mean 102 Respiration from ECG 20 SpO2 100 I&O: 11/15/18 11/16/18 11/17/18 06:59 06:59 06:59 Intake Total 5140 2781 1988 Output Total 441 5879 2310 Balance 730 -5542 -148 Result Diagrams: 11/16/18 05:08 11/16/18 05:08 Additional Labs: Accuchecks 11/16/18 11/16/18 11/15/18 16:34 11:28 20:57 POC Glucose 279 H 176 H 217 H ROS - Review of Systems All systems: All other ROS were reviewed and found negative. - Medication Medications: Active Medications Generic Name Dose Route Start Last Admin Trade Name Freq PRN Reason Stop Dose Admin Aspirin 81 mg 11/15/18 09:00 11/16/18 05:47 Ecotrin PO 81 mg DAILY GABRIEL Administration Atorvastatin Calcium 40 mg 11/14/18 21:00 11/15/18 20:56 Lipitor PO 40 mg HS GABRIEL Administration Carvedilol 6.25 mg 11/16/18 17:00 11/16/18 16:33 Coreg PO 6.25 mg BID-WM GABRIEL Administration Insulin Glargine 20 units/ 0.2 mls @ 0.2 mls/hr 11/15/18 21:00 11/16/18 13:11 Miscellaneous Medication SC 0.2 mls BID GABRIEL Administration Insulin Human Regular 0 units 11/14/18 18:52 11/16/18 16:33 Humulin R SC 4 units .MODERATE SLIDING SC PRN Administration MODERATE SLIDING SCALE Protocol Lorazepam 0.5 mg 11/15/18 21:41 11/15/18 21:58 Ativan PO 0.5 mg QPM PRN Administration Anxiety/Restlessness/Sleep Sertraline HCl 200 mg 11/15/18 09:00 11/16/18 13:09 Zoloft PO 200 mg DAILY GABRIEL Administration Sodium Chloride 10 ml 11/14/18 09:00 11/16/18 13:09 Flush - Normal Saline IVF 10 ml Q12HR GABRIEL Administration - Exam awake alert Eye: anicteric sclera ENT: normocephalic atraumatic Neck: supple, symmetric Heart: RRR Respiratory: no wheezes, no rales, no ronchi, normal chest expansion Gastrointestinal: soft, non-tender, non-distended, normal bowel sounds Extremities: no cyanosis, no edema Neurological: CN's grossly intact, no focal deficits Psychiatric: normal affect, A&O x 3 Hosp A/P (1) Hypotension Status: Acute (2) SIRS (systemic inflammatory response syndrome) Code(s): R65.10 - SIRS OF NON-INFECTIOUS ORIGIN W/O ACUTE ORGAN DYSFUNCTION Status: Acute (3) Acute non-ST elevation myocardial infarction (NSTEMI) Code(s): I21.4 - NON-ST ELEVATION (NSTEMI) MYOCARDIAL INFARCTION Status: Acute (4) Elevated lipase Code(s): R74.8 - ABNORMAL LEVELS OF OTHER SERUM ENZYMES Status: Acute (5) Dehydration with hyponatremia Code(s): E87.1 - HYPO-OSMOLALITY AND HYPONATREMIA Status: Acute (6) WICHO (acute kidney injury) Code(s): N17.9 - ACUTE KIDNEY FAILURE, UNSPECIFIED Status: Acute (7) DKA (diabetic ketoacidoses) Code(s): E11.10 - TYPE 2 DIABETES MELLITUS WITH KETOACIDOSIS WITHOUT COMA Status: Acute (8) Hyperglycemia Code(s): R73.9 - HYPERGLYCEMIA, UNSPECIFIED Status: Acute (9) Hyperchloremic acidosis Code(s): E87.2 - ACIDOSIS Status: Acute (10) Acute metabolic encephalopathy Code(s): G93.41 - METABOLIC ENCEPHALOPATHY Status: Acute (11) CAD (coronary artery disease) Code(s): I25.10 - ATHSCL HEART DISEASE OF [place] CORONARY ARTERY W/O ANG PCTRS Status: Acute Qualifiers: Coronary Disease-Associated Artery/Lesion type: [place] artery - Plan Advance diet as tolersted Monitor vitals and start amlodipine if bp is consistently elevated. Continue insulin therapy and adjust as needed to get adequate glycemic control. recheck renal function in the morning in view of contrast study CTS, Cardiology and GI following.
[2018-11-16] MEDS: Atorvastatin Calcium 40 MG TAB PO SCH (20:40)
[2018-11-16] MEDS: Lorazepam 0.5 MG TAB PO PRN (21:01)
[2018-11-17 05:41] LABS: Hemoglobin A1c 9.3 % (4.0-6.0)
[2018-11-17 05:53] LABS: Anion Gap 10 mmol/L (10-20); BUN (Urea Nitrogen) 8 mg/dL (8.4-25.7); Calc. Creatinine Clearance 136 mL/min (70-130); Calcium 8.6 mg/dL (7.8-10.44); Carbon Dioxide 26 mmol/L (23-31); Chloride 107 mmol/L (98-107); Estimated GFR-MDRD Greater than 90; Glucose 117 mg/dL (80-115); Potassium 3.5 mmol/L (3.5-5.1); Sodium 139 mmol/L (136-145)
[2018-11-17] MEDS: Aspirin 81 mg Enteric Coated Tablet PO SCH (09:07)
[2018-11-17] MEDS: Carvedilol 6.25 MG TAB PO SCH ×2 (09:07→16:11)
[2018-11-17] MEDS: Enoxaparin Sodium 40 MG/0.4 ML SYRINGE SC SCH (09:08)
[2018-11-17] MEDS: Insulin Glargine 20 UNITS in Pre-Filled Syringe 1 EACH SC SCH ×2 (09:10→20:58)
[2018-11-17] MEDS: Insulin Regular 300 UNITS/3 ML VIAL SC PRN ×2 (11:33→16:55)
--- NOTE | 2018-11-17 12:28 | PDOC.HOSPP ---
- Subjective Subjective: Pt was seen and examined, no new issues. - Objective Vital Signs & Weight: Vital Signs (12 hours) Temp Pulse Resp BP Pulse Ox 11/17/18 11:24 98.6 F 68 16 122/68 97 11/17/18 07:37 98.3 F 70 17 149/85 H 94 L 11/17/18 04:00 98.2 F 70 20 132/77 94 L Weight Weight 186 lb Most Recent Monitor Data Heart Rate from ECG 65 NIBP 115/74 NIBP BP-Mean 87 Respiration from ECG 19 SpO2 99 I&O: 11/16/18 11/17/18 11/18/18 06:59 06:59 06:59 Intake Total 2781 1988 Output Total 5940 1406 Balance -3050 -2 Result Diagrams: 11/16/18 05:08 11/17/18 04:40 Additional Labs: Accuchecks 11/17/18 11/17/18 11/16/18 11:31 05:45 20:42 POC Glucose 238 H 153 H 327 H 11/16/18 16:34 POC Glucose 279 H ROS - Review of Systems All systems: All other ROS were reviewed and found negative. - Medication Medications: Active Medications Generic Name Dose Route Start Last Admin Trade Name Freq PRN Reason Stop Dose Admin Aspirin 81 mg 11/15/18 09:00 11/17/18 09:07 Ecotrin PO 81 mg DAILY GABRIEL Administration Atorvastatin Calcium 40 mg 11/14/18 21:00 11/16/18 20:40 Lipitor PO 40 mg HS GABRIEL Administration Carvedilol 6.25 mg 11/16/18 17:00 11/17/18 09:07 Coreg PO 6.25 mg BID-WM GABRIEL Administration Enoxaparin Sodium 40 mg 11/17/18 09:00 11/17/18 09:08 Lovenox SC 40 mg 0900 GABRIEL Administration Insulin Glargine 20 units/ 0.2 mls @ 0.2 mls/hr 11/15/18 21:00 11/17/18 09:10 Miscellaneous Medication SC 0.2 mls BID GABRIEL Administration Insulin Human Regular 0 units 11/14/18 18:52 11/17/18 11:33 Humulin R SC 4 units .MODERATE SLIDING SC PRN Administration MODERATE SLIDING SCALE Protocol Isosorbide Mononitrate 30 mg 11/17/18 09:00 11/17/18 09:09 Imdur Er PO 30 mg DAILY GABRIEL Administration Lorazepam 0.5 mg 11/15/18 21:41 11/16/18 21:01 Ativan PO 0.5 mg QPM PRN Administration Anxiety/Restlessness/Sleep Sertraline HCl 200 mg 11/15/18 09:00 11/17/18 09:09 Zoloft PO 200 mg DAILY GABRIEL Administration Sodium Chloride 10 ml 11/14/18 09:00 11/17/18 09:10 Flush - Normal Saline IVF 10 ml Q12HR GABRIEL Administration - Exam NAD, awake alert Eye: PERRL, anicteric sclera ENT: normocephalic atraumatic, no oropharyngeal lesions, moist mucosa Neck: supple, symmetric, no JVD, no Thyromegaly, no lymphadenopathy, no carotid bruit Heart: RRR, no murmur, no gallops, no rubs, normal peripheral pulses Respiratory: CTAB, no wheezes, no rales, no ronchi, normal chest expansion, no tachypnea, normal percussion Gastrointestinal: soft, non-tender, non-distended, normal bowel sounds, no palpable masses, no hepatomegaly, no splenomegaly, no bruit Extremities: no cyanosis, no clubbing, no edema Skin: normal turgor, no lesions, no rashes Hosp A/P (1) Diabetes mellitus Code(s): E11.9 - TYPE 2 DIABETES MELLITUS WITHOUT COMPLICATIONS Status: Acute (2) NSTEMI (non-ST elevated myocardial infarction) Code(s): I21.4 - NON-ST ELEVATION (NSTEMI) MYOCARDIAL INFARCTION Status: Acute (3) CAD (coronary artery disease) Code(s): I25.10 - ATHSCL HEART DISEASE OF [place] CORONARY ARTERY W/O ANG PCTRS Status: Acute Qualifiers: Coronary Disease-Associated Artery/Lesion type: [place] artery - Plan - s/p cath, pending cabg options - cont current medical plan of care - no new changes
--- NOTE | 2018-11-17 17:17 | PRG ---
DATE OF SERVICE: 11/17/2018 SUBJECTIVE: Mr. Marks has no new complaints. His vital signs have been stable. There has been no change in his exam overall. Electrolytes are normal today. Creatinine is 0.68, glucose is 117. IMPRESSION: 1. Status post DKA and hyperosmolar coma. 2. Tobacco use. 3. ? Chronic obstructive pulmonary disease. PFTs are pending. We will continue to follow. Job ID: [id number]
[2018-11-17] MEDS: Atorvastatin Calcium 40 MG TAB PO SCH (20:06)
[2018-11-17] MEDS: Lorazepam 0.5 MG TAB PO PRN (22:13)
[2018-11-18 05:16] LABS: Anion Gap 12 mmol/L (10-20); BUN (Urea Nitrogen) 7 mg/dL (8.4-25.7); Calc. Creatinine Clearance 119 mL/min (70-130); Calcium 8.9 mg/dL (7.8-10.44); Carbon Dioxide 26 mmol/L (23-31); Chloride 106 mmol/L (98-107); Estimated GFR-MDRD Greater than 90; Glucose 112 mg/dL (80-115); Potassium 3.5 mmol/L (3.5-5.1); Sodium 140 mmol/L (136-145)
[2018-11-18] MEDS ORDERED: Lisinopril 5 MG TAB PO SCH (09:00)
--- NOTE | 2018-11-18 09:16 | PDOC.HOSPP ---
- Subjective Subjective: Patient seen and examined, no new issues - Objective Vital Signs & Weight: Vital Signs (12 hours) Temp Pulse Resp BP Pulse Ox 11/18/18 07:50 97.7 F 76 16 155/91 H 96 11/18/18 04:00 99.3 F 72 18 125/73 96 Weight Weight 174 lb 1.6 oz Most Recent Monitor Data Heart Rate from ECG 65 NIBP 115/74 NIBP BP-Mean 87 Respiration from ECG 19 SpO2 99 I&O: 11/17/18 11/18/18 11/19/18 06:59 06:59 06:59 Intake Total 1987 2640 240 Output Total 9780 4200 Balance -522 -3310 240 Result Diagrams: 11/16/18 05:08 11/18/18 04:34 Additional Labs: Accuchecks 11/18/18 11/17/18 11/17/18 05:49 20:44 16:45 POC Glucose 106 180 H 282 H 11/17/18 11:31 POC Glucose 238 H ROS - Review of Systems All systems: All other ROS were reviewed and found negative. - Medication Medications: Active Medications Generic Name Dose Route Start Last Admin Trade Name Freq PRN Reason Stop Dose Admin Aspirin 81 mg 11/15/18 09:00 11/17/18 09:07 Ecotrin PO 81 mg DAILY GABRIEL Administration Atorvastatin Calcium 40 mg 11/14/18 21:00 11/17/18 20:06 Lipitor PO 40 mg HS GABRIEL Administration Carvedilol 6.25 mg 11/16/18 17:00 11/17/18 16:11 Coreg PO 6.25 mg BID-WM GABRIEL Administration Enoxaparin Sodium 40 mg 11/17/18 09:00 11/17/18 09:08 Lovenox SC 40 mg 0900 GABRIEL Administration Insulin Glargine 20 units/ 0.2 mls @ 0.2 mls/hr 11/15/18 21:00 11/17/18 20:58 Miscellaneous Medication SC 0.2 mls BID GABRIEL Administration Insulin Human Regular 0 units 11/14/18 18:52 11/17/18 16:55 Humulin R SC 6 units .MODERATE SLIDING SC PRN Administration MODERATE SLIDING SCALE Protocol Isosorbide Mononitrate 30 mg 11/17/18 09:00 11/17/18 09:09 Imdur Er PO 30 mg DAILY GABRIEL Administration Lorazepam 0.5 mg 11/15/18 21:41 11/17/18 22:13 Ativan PO 0.5 mg QPM PRN Administration Anxiety/Restlessness/Sleep Sertraline HCl 200 mg 11/15/18 09:00 11/17/18 09:09 Zoloft PO 200 mg DAILY GABRIEL Administration Sodium Chloride 10 ml 11/14/18 09:00 11/17/18 20:59 Flush - Normal Saline IVF 10 ml Q12HR GABRIEL Administration - Exam NAD, awake alert Eye: PERRL, anicteric sclera ENT: normocephalic atraumatic, no oropharyngeal lesions Neck: supple, symmetric, no JVD Heart: RRR, no murmur, no gallops Respiratory: CTAB, no wheezes, no rales Gastrointestinal: soft, non-tender, non-distended Extremities: no cyanosis, no clubbing Neurological: CN's grossly intact, normal sensation to touch Hosp A/P (1) Diabetes mellitus Code(s): E11.9 - TYPE 2 DIABETES MELLITUS WITHOUT COMPLICATIONS Status: Acute (2) NSTEMI (non-ST elevated myocardial infarction) Code(s): I21.4 - NON-ST ELEVATION (NSTEMI) MYOCARDIAL INFARCTION Status: Acute (3) CAD (coronary artery disease) Code(s): I25.10 - ATHSCL HEART DISEASE OF [place] CORONARY ARTERY W/O ANG PCTRS Status: Acute Qualifiers: Coronary Disease-Associated Artery/Lesion type: [place] artery - Plan - possible CABG procedure pending - no changes in plan of care - labs in AM - vitals stable
[2018-11-18] MEDS: Insulin Glargine 20 UNITS in Pre-Filled Syringe 1 EACH SC SCH ×2 (09:29→21:58)
[2018-11-18] MEDS: Aspirin 81 mg Enteric Coated Tablet PO SCH (09:30)
[2018-11-18] MEDS: Enoxaparin Sodium 40 MG/0.4 ML SYRINGE SC SCH (09:30)
[2018-11-18] MEDS: Lisinopril 2.5 MG TAB PO SCH ×2 (09:30→20:28)
[2018-11-18] MEDS: Carvedilol 6.25 MG TAB PO SCH ×2 (09:30→16:28)
[2018-11-18] MEDS: Insulin Regular 300 UNITS/3 ML VIAL SC PRN ×2 (12:37→17:08)
--- NOTE | 2018-11-18 18:50 | PRG ---
DATE OF SERVICE: 11/18/2018 SUBJECTIVE: Michel Marks has no complaints. His speech is improved again. He is still little dysarthric. OBJECTIVE: VITAL SIGNS: He is afebrile. Heart rate 68, respiratory rate 17, oximetry is 97%, blood pressure 123/69. LUNGS: Clear. HEART: Regular rhythm. S1 and S2 are normal. ABDOMEN: Soft and nontender. LABORATORY DATA: PFTs are pending. IMPRESSION: 1. Coronary artery disease, awaiting bypass. 2. Status post hyperosmolar state with hyperglycemia. 3. Diabetic ketoacidosis on presentation. 4. Longstanding diabetes since he was in his 20s. 5. Anemia with normal mean corpuscular volume. We will await scheduling his surgery. Job ID: [id number]
[2018-11-18] MEDS: Atorvastatin Calcium 40 MG TAB PO SCH (20:28)
[2018-11-18] MEDS: Lorazepam 0.5 MG TAB PO PRN (20:29)
[2018-11-19 04:48] LABS: #Eosinphils 0.2 thou/uL (0.0-0.7); #Lymphocytes 1.6 thou/uL (1.20-3.40); #Monocytes 0.9 thou/uL (0.11-0.59); #Neutrophils 4.2 thou/uL (1.40-6.50); %Basophils 0.6 % (0.0-1.0); %Eosinophils 3.2 % (0.0-10.0); %Lymphocytes 23.6 % (21.0-51.0); %Monocytes 12.6 % (0.0-10.0); %Neutrophils 59.9 % (42.0-75.0); Hemoglobin 11.1 g/dL (14.0-18.0); Mean Corpuscular HGB CONC 34.3 g/dL (32.0-36.0); Mean Corpuscular Hemoglobin 33.1 pg (27.0-31.0); Mean Corpuscular Volume 96.6 fL (78.0-98.0); Mean Platelet Volume 8.5 fL (7.4-10.4); Platelet Count 184 thou/uL (130-400); Red Blood Cell (RBC) Count 3.36 mill/uL (4.70-6.10); White Blood Cell (WBC) Count 6.9 thou/uL (4.8-10.8)
[2018-11-19 05:15] LABS: Anion Gap 10 mmol/L (10-20); BUN (Urea Nitrogen) 11 mg/dL (8.4-25.7); Calc. Creatinine Clearance 108 mL/min (70-130); Carbon Dioxide 27 mmol/L (23-31); Chloride 103 mmol/L (98-107); Estimated GFR-MDRD Greater than 90; Glucose 220 mg/dL (80-115); Potassium 3.9 mmol/L (3.5-5.1); Sodium 136 mmol/L (136-145)
[2018-11-19] MEDS: Carvedilol 6.25 MG TAB PO SCH ×2 (08:45→17:48)
[2018-11-19] MEDS: Lisinopril 2.5 MG TAB PO SCH (08:45)
[2018-11-19] MEDS: Aspirin 81 mg Enteric Coated Tablet PO SCH (08:45)
[2018-11-19] MEDS: Insulin Glargine 20 UNITS in Pre-Filled Syringe 1 EACH SC SCH (08:46)
[2018-11-19] MEDS: Enoxaparin Sodium 40 MG/0.4 ML SYRINGE SC SCH (08:46)
[2018-11-19] MEDS: Insulin Regular 300 UNITS/3 ML VIAL SC PRN ×2 (08:47→11:54)
[2018-11-19] MEDS ORDERED: Lisinopril 2.5 MG TAB PO SCH ×2 (08:58→10:30)
[2018-11-19] MEDS ORDERED: Lisinopril 5 MG TAB PO SCH (09:00)
--- NOTE | 2018-11-19 10:23 | ULT ---
BILATERAL CAROTID DUPLEX ULTRASOUND: DATE: 11/19/18 HISTORY: Left-sided hemiplegia, CVA. TECHNIQUE: Shannon scale ultrasound with color flow and spectral Doppler imaging of the extracranial carotid artery systems performed bilaterally. FINDINGS: There is extensive plaque formation noted on both sides, right greater than left. The peak systolic velocity in the right ICA measures 132 cm/second with an end-diastolic velocity of 42 cm/second and a systolic ratio of 0.97. The peak systolic velocity in the left ICA measures 124 cm/second with an end-diastolic velocity of 3 4 cm/second and a systolic ratio of 0.83. Flow in both vertebral arteries remains antegrade. There is decreased flow noted in the right ICA. IMPRESSION: No definite evidence of hemodynamically significant stenosis. However, since there is decreased flow in the right ICA with extensive plaque formation, recommend further evaluation with CT angiogram. POS: T[facility]
[2018-11-19] MEDS ORDERED: Insulin Glargine 25 UNITS in Pre-Filled Syringe 1 EACH SC SCH (11:00)
--- NOTE | 2018-11-19 12:07 | PDOC.HOSPP ---
- Subjective Subjective: 64 y/o male with prior multiple CVA's, DM and others admitted due to intractable nausea and vomiting associated with AMS and ill feeling. Found to have hypotension, hyperglycemia blood glucose above 1000, WICHO and with elevated Lipase and troponin. Treated with IVF, pressors, and insulin infusion with improvement. Had cardiac cath which showed severe multiple vessel disease. CTS has seen patient and CABG is planned. No new problem.. - Objective Vital Signs & Weight: Vital Signs (12 hours) Temp Pulse Resp BP Pulse Ox 11/19/18 08:45 66 11/19/18 08:00 98.2 F 62 17 133/75 95 11/19/18 03:55 66 18 132/73 Weight Weight 174 lb 1.6 oz Most Recent Monitor Data Heart Rate from ECG 65 NIBP 115/74 NIBP BP-Mean 87 Respiration from ECG 19 SpO2 99 I&O: 11/18/18 11/19/18 11/20/18 06:59 06:59 06:59 Intake Total 2640 2405 Output Total 4200 Balance -1560 2405 Result Diagrams: 11/19/18 04:22 11/19/18 04:22 Additional Labs: Accuchecks 11/19/18 11/19/18 11/18/18 11:02 05:45 21:09 POC Glucose 242 H 302 H 130 H 11/18/18 16:55 POC Glucose 259 H ROS - Review of Systems All systems: All other ROS were reviewed and found negative. - Medication Medications: Active Medications Generic Name Dose Route Start Last Admin Trade Name Freq PRN Reason Stop Dose Admin Aspirin 81 mg 11/15/18 09:00 11/19/18 08:45 Ecotrin PO 81 mg DAILY GABRIEL Administration Atorvastatin Calcium 40 mg 11/14/18 21:00 11/18/18 20:28 Lipitor PO 40 mg HS GABRIEL Administration Carvedilol 6.25 mg 11/16/18 17:00 11/19/18 08:45 Coreg PO 6.25 mg BID-WM GABRIEL Administration Enoxaparin Sodium 40 mg 11/17/18 09:00 11/19/18 08:46 Lovenox SC 40 mg 0900 GABRIEL Administration Insulin Human Regular 0 units 11/14/18 18:52 11/19/18 08:47 Humulin R SC 8 units .MODERATE SLIDING SC PRN Administration MODERATE SLIDING SCALE Protocol Isosorbide Mononitrate 30 mg 11/17/18 09:00 11/19/18 08:45 Imdur Er PO 30 mg DAILY GABRIEL Administration Lorazepam 0.5 mg 11/15/18 21:41 11/18/18 20:29 Ativan PO 0.5 mg QPM PRN Administration Anxiety/Restlessness/Sleep Sertraline HCl 200 mg 11/15/18 09:00 11/19/18 08:45 Zoloft PO 200 mg DAILY GABRIEL Administration Sodium Chloride 10 ml 11/14/18 09:00 11/19/18 08:46 Flush - Normal Saline IVF 10 ml Q12HR GABRIEL Administration - Exam awake alert Eye: anicteric sclera ENT: normocephalic atraumatic Neck: supple, symmetric, no JVD Heart: RRR Respiratory: CTAB, no wheezes, no rales Gastrointestinal: soft, non-tender, non-distended Extremities: no cyanosis, no edema Neurological: CN's grossly intact, no focal deficits Psychiatric: A&O x 3 Hosp A/P (1) Acute non-ST elevation myocardial infarction (NSTEMI) Code(s): I21.4 - NON-ST ELEVATION (NSTEMI) MYOCARDIAL INFARCTION Status: Acute (2) Hypotension Status: Acute (3) SIRS (systemic inflammatory response syndrome) Code(s): R65.10 - SIRS OF NON-INFECTIOUS ORIGIN W/O ACUTE ORGAN DYSFUNCTION Status: Acute (4) Elevated lipase Code(s): R74.8 - ABNORMAL LEVELS OF OTHER SERUM ENZYMES Status: Acute (5) Dehydration with hyponatremia Code(s): E87.1 - HYPO-OSMOLALITY AND HYPONATREMIA Status: Acute (6) WICHO (acute kidney injury) Code(s): N17.9 - ACUTE KIDNEY FAILURE, UNSPECIFIED Status: Acute (7) DKA (diabetic ketoacidoses) Code(s): E11.10 - TYPE 2 DIABETES MELLITUS WITH KETOACIDOSIS WITHOUT COMA Status: Acute (8) Hyperglycemia Code(s): R73.9 - HYPERGLYCEMIA, UNSPECIFIED Status: Acute (9) Hyperchloremic acidosis Code(s): E87.2 - ACIDOSIS Status: Acute (10) Acute metabolic encephalopathy Code(s): G93.41 - METABOLIC ENCEPHALOPATHY Status: Acute (11) CAD (coronary artery disease) Code(s): I25.10 - ATHSCL HEART DISEASE OF [place] CORONARY ARTERY W/O ANG PCTRS Status: Acute Qualifiers: Coronary Disease-Associated Artery/Lesion type: [place] artery (12) Diabetes mellitus with hyperglycemia Code(s): E11.65 - TYPE 2 DIABETES MELLITUS WITH HYPERGLYCEMIA Status: Acute - Plan Change lantus to 45 units daily. Get CTA neck for evaluation of carotids. carotid doppler showed decreased flow. Monitor renal functin. continue other treatments.
[2018-11-19] MEDS ORDERED: Communication Order-Pharmacy FS SCH (12:45)
--- NOTE | 2018-11-19 13:21 | CT ---
CTA NECK WITH CONTRAST: Multiple axial tomograms obtained with multiplanar reconstruction and 3D postprocessing following ang io protocol. INDICATION: Carotid atherosclerosis. Decreased flow noted in the right internal carotid artery on Doppler exam. T his exam is performed in follow-up to the carotid Doppler exam of 11/19/18. FINDINGS: Atherosclerotic disease is seen in the aortic arch. Calcification seen at the origin of the arch vess els; however, no significant stenosis seen at the origin of the arch vessels. Right common carotid artery is patent. There is calcified plaque seen in the mid right common carotid artery which produces mild stenosis. This is estimated at less than 50% and does not appear hemodyna mically significant by NASCET criteria. Densely calcified plaque, as well as soft plaque, is seen in the right bulb and proximal right ICA. L umen is irregular in the proximal right internal carotid artery due to the soft plaque associated wit h peripheral calcified plaque. This does result in stenosis at the proximal right ICA which does appe ar hemodynamically significant by NASCET criteria estimated at 50-60% diameter stenosis. The left common carotid artery shows dense calcified plaque in its mid portion which does produce lum inal narrowing estimated in the 40-50% diameter range by NASCET criteria. There is densely calcified plaque in the left bulb and left proximal ICA. This produces mild stenosis which is estimated at 25-30% by NASCET criteria, not hemodynamically significant. Vertebral arteries are patent and appear symmetric. IMPRESSION: Densely calcified plaque in extracranial carotid arteries with calcified plaque and soft plaque in th e proximal right ICA producing irregular lumen and hemodynamically significant stenosis as described above. Recommend correlation with cath or angiogram. POS: [facility]
[2018-11-19] MEDS ORDERED: Iopamidol 370 76% 100 ML VIAL ONE (14:38)
[2018-11-19] MEDS: Lorazepam 0.5 MG TAB PO PRN (21:23)
[2018-11-19] MEDS: Lisinopril 5 MG TAB PO SCH (21:23)
[2018-11-19] MEDS: Atorvastatin Calcium 40 MG TAB PO SCH (21:23)
[2018-11-19] MEDS: HYDROcodone/Acetaminophen 5/325 mg Tablet PO PRN (21:26)
[2018-11-20 04:54] LABS: Anion Gap 8 mmol/L (10-20); BUN (Urea Nitrogen) 12 mg/dL (8.4-25.7); Calc. Creatinine Clearance 113 mL/min (70-130); Calcium 9.2 mg/dL (7.8-10.44); Carbon Dioxide 30 mmol/L (23-31); Chloride 105 mmol/L (98-107); Estimated GFR-MDRD Greater than 90; Sodium 139 mmol/L (136-145)
[2018-11-20 05:08] LABS: Glucose 35 mg/dL (80-115)
[2018-11-20] MEDS: Enoxaparin Sodium 40 MG/0.4 ML SYRINGE SC SCH (08:40)
[2018-11-20] MEDS: Aspirin 81 mg Enteric Coated Tablet PO SCH (08:41)
[2018-11-20] MEDS: Lisinopril 5 MG TAB PO SCH ×2 (08:41→20:34)
[2018-11-20] MEDS: Carvedilol 6.25 MG TAB PO SCH ×2 (08:41→16:12)
[2018-11-20] MEDS ORDERED: Insulin Glargine 45 UNITS in Pre-Filled Syringe 1 EACH SC SCH (09:00)
--- NOTE | 2018-11-20 09:28 | RAD ---
EXAM: Chest 2 views: HISTORY: Preoperative radiograph prior to CABG COMPARISON: None. FINDINGS: There is a normal-sized cardiomediastinal silhouette. Atherosclerotic calcifications are seen in the aorta. There is no evidence of consolidation, mass, or pleural effusion. The bones are unremarkable. IMPRESSION: No evidence of acute cardiopulmonary disease
[2018-11-20] MEDS: Insulin Glargine 40 UNITS in Pre-Filled Syringe 1 EACH SC SCH (09:37)
[2018-11-20] MEDS: Insulin Regular 300 UNITS/3 ML VIAL SC PRN ×2 (12:14→17:30)
--- NOTE | 2018-11-20 13:11 | EKG ---
Test Reason : Blood Pressure : / mmHG Vent. Rate : 101 BPM Atrial Rate : 101 BPM P-R Int : 162 ms QRS Dur : 098 ms QT Int : 370 ms P-R-T Axes : 079 -82 048 degrees QTc Int : 479 ms Sinus tachycardia Left anterior fascicular block Abnormal ECG Confirmed by LAMAR TRENT DO ([id number]), international editorial producer TAMMY PETERSEN ([id number]) on 11/20/2018 1:11:13 PM Referred By: Confirmed By:LAMAR TRENT DO
--- NOTE | 2018-11-20 13:38 | PDOC.HOSPP ---
- Subjective Subjective: 64 y/o male with prior multiple CVA's, DM and others admitted due to intractable nausea and vomiting associated with AMS and ill feeling. Found to have hypotension, hyperglycemia blood glucose above 1000, WICHO and with elevated Lipase and troponin. Treated with IVF, pressors, and insulin infusion with improvement. Had cardiac cath which showed severe multiple vessel disease. CTS has seen patient and CABG is to take place on 11/22/2018. Had transient hypoglycemia last night which was treated adequately. No new problem.. - Objective Vital Signs & Weight: Vital Signs (12 hours) Temp Pulse Resp BP Pulse Ox 11/20/18 12:13 98.2 F 64 18 111/56 L 95 11/20/18 08:41 67 11/20/18 08:35 97.9 F 67 18 129/70 95 11/20/18 04:00 98.0 F 66 18 107/67 96 Weight Weight 167 lb Most Recent Monitor Data Heart Rate from ECG 65 NIBP 115/74 NIBP BP-Mean 87 Respiration from ECG 19 SpO2 99 I&O: 11/19/18 11/20/18 11/21/18 06:59 06:59 06:59 Intake Total 2405 1085 Output Total 750 Balance 2405 335 Result Diagrams: 11/19/18 04:22 11/20/18 04:16 Additional Labs: Accuchecks 11/20/18 11/20/18 11/19/18 11:43 05:59 20:16 POC Glucose 349 H 122 H 107 11/19/18 17:03 POC Glucose 94 ROS - Review of Systems All systems: All other ROS were reviewed and found negative. - Medication Medications: Active Medications Generic Name Dose Route Start Last Admin Trade Name Freq PRN Reason Stop Dose Admin Hydrocodone Bitart/Acetaminophen 1 tab 11/19/18 21:15 11/19/18 21:26 [place] 5/325 PO 1 tab Q6H PRN Administration Moderate Pain (4-6) Aspirin 81 mg 11/15/18 09:00 11/20/18 08:41 Ecotrin PO 81 mg DAILY GABRIEL Administration Atorvastatin Calcium 40 mg 11/14/18 21:00 11/19/18 21:23 Lipitor PO 40 mg HS GABRIEL Administration Carvedilol 6.25 mg 11/16/18 17:00 11/20/18 08:41 Coreg PO 6.25 mg BID-WM GABRIEL Administration Enoxaparin Sodium 40 mg 11/17/18 09:00 11/20/18 08:40 Lovenox SC 40 mg 0900 GABRIEL Administration Insulin Glargine 40 units/ 0.4 mls @ 0.2 mls/hr 11/20/18 09:00 11/20/18 09:37 Miscellaneous Medication SC 0.4 mls QAM GABRIEL Administration Insulin Human Regular 0 units 11/14/18 18:52 11/20/18 12:14 Humulin R SC 8 units .MODERATE SLIDING SC PRN Administration MODERATE SLIDING SCALE Protocol Isosorbide Mononitrate 30 mg 11/17/18 09:00 11/20/18 08:41 Imdur Er PO 30 mg DAILY GABRIEL Administration Lisinopril 5 mg 11/19/18 21:00 11/20/18 08:41 Zestril PO 5 mg BID GABRIEL Administration Lorazepam 0.5 mg 11/15/18 21:41 11/19/18 21:23 Ativan PO 0.5 mg QPM PRN Administration Anxiety/Restlessness/Sleep Sertraline HCl 200 mg 11/15/18 09:00 11/20/18 08:41 Zoloft PO 200 mg DAILY GABRIEL Administration Sodium Chloride 10 ml 11/14/18 09:00 11/20/18 08:41 Flush - Normal Saline IVF 10 ml Q12HR GABRIEL Administration - Exam awake alert Eye: anicteric sclera ENT: normocephalic atraumatic Neck: supple, symmetric, no JVD Heart: RRR Respiratory: no wheezes, no rales, no ronchi, normal chest expansion Gastrointestinal: soft, non-tender, non-distended, normal bowel sounds Extremities: no cyanosis, no edema Neurological: CN's grossly intact, no focal deficits Psychiatric: normal affect, normal behavior, A&O x 3 Hosp A/P (1) Hypoglycemia due to insulin Code(s): E16.0 - DRUG-INDUCED HYPOGLYCEMIA WITHOUT COMA; T38.3X5A - ADVERSE EFFECT OF INSULIN AND ORAL HYPOGLYCEMIC DRUGS, INIT Status: Acute (2) Acute non-ST elevation myocardial infarction (NSTEMI) Code(s): I21.4 - NON-ST ELEVATION (NSTEMI) MYOCARDIAL INFARCTION Status: Acute (3) Hypotension Status: Acute (4) SIRS (systemic inflammatory response syndrome) Code(s): R65.10 - SIRS OF NON-INFECTIOUS ORIGIN W/O ACUTE ORGAN DYSFUNCTION Status: Acute (5) Elevated lipase Code(s): R74.8 - ABNORMAL LEVELS OF OTHER SERUM ENZYMES Status: Acute (6) Dehydration with hyponatremia Code(s): E87.1 - HYPO-OSMOLALITY AND HYPONATREMIA Status: Acute (7) WICHO (acute kidney injury) Code(s): N17.9 - ACUTE KIDNEY FAILURE, UNSPECIFIED Status: Acute (8) DKA (diabetic ketoacidoses) Code(s): E11.10 - TYPE 2 DIABETES MELLITUS WITH KETOACIDOSIS WITHOUT COMA Status: Acute (9) Hyperglycemia Code(s): R73.9 - HYPERGLYCEMIA, UNSPECIFIED Status: Acute (10) Hyperchloremic acidosis Code(s): E87.2 - ACIDOSIS Status: Acute (11) Acute metabolic encephalopathy Code(s): G93.41 - METABOLIC ENCEPHALOPATHY Status: Acute (12) CAD (coronary artery disease) Code(s): I25.10 - ATHSCL HEART DISEASE OF [place] CORONARY ARTERY W/O ANG PCTRS Status: Acute Qualifiers: Coronary Disease-Associated Artery/Lesion type: [place] artery (13) Diabetes mellitus with hyperglycemia Code(s): E11.65 - TYPE 2 DIABETES MELLITUS WITH HYPERGLYCEMIA Status: Acute - Plan Decrease lantus to 40 units daily. Continue sliding sclae insulin. Continue other treatments. For CABG in 2 days time.
--- NOTE | 2018-11-20 15:38 | PRG ---
DATE OF SERVICE: 11/20/2018 SUBJECTIVE: Michel Marks is in no distress. He says that he had his spirometry. should be available and I could not find a report in the chart. He has no new complaints. OBJECTIVE: VITAL SIGNS: He is afebrile, heart rate 64, respiratory rate 18, oximetry is 95% on room air, blood pressure 111/56. LUNGS: Clear. HEART: Regular rhythm. ABDOMEN: Soft. IMPRESSION: 1. Coronary artery disease, awaiting bypass. 2. Tobacco use, ? chronic obstructive pulmonary disease. 3. Status post hyperosmolar coma, mixed with diabetic ketoacidosis, clinically stable. Job ID: [id number]
[2018-11-20] MEDS: HYDROcodone/Acetaminophen 5/325 mg Tablet PO PRN (20:30)
[2018-11-20] MEDS: Atorvastatin Calcium 40 MG TAB PO SCH (20:30)
[2018-11-20] MEDS: Lorazepam 0.5 MG TAB PO PRN (20:31)
[2018-11-21 05:13] LABS: Anion Gap 9 mmol/L (10-20); BUN (Urea Nitrogen) 12 mg/dL (8.4-25.7); Calc. Creatinine Clearance 112 mL/min (70-130); Calcium 8.7 mg/dL (7.8-10.44); Carbon Dioxide 28 mmol/L (23-31); Chloride 104 mmol/L (98-107); Estimated GFR-MDRD Greater than 90; Glucose 105 mg/dL (80-115); Potassium 3.9 mmol/L (3.5-5.1); Sodium 137 mmol/L (136-145)
[2018-11-21 05:56] LABS: Hemoglobin 11.1 g/dL (14.0-18.0); Mean Corpuscular HGB CONC 33.6 g/dL (32.0-36.0); Mean Corpuscular Hemoglobin 32.8 pg (27.0-31.0); Mean Corpuscular Volume 97.4 fL (78.0-98.0); Mean Platelet Volume 7.6 fL (7.4-10.4); Platelet Count 239 thou/uL (130-400); RBC Distribution Width 12.3 % (11.5-14.5); White Blood Cell (WBC) Count 8.1 thou/uL (4.8-10.8)
[2018-11-21 05:57] LABS: Band 4 % (5-11); Eosinophils 7 % (0-10); Lymphocytes 21 % (21-51); MDiff Complete? YES; Monocytes 8 % (0-10); Neutrophil 55 % (42-75); Reactive Lymphocytes 5 % (0-10)
[2018-11-21] MEDS: Lisinopril 5 MG TAB PO SCH ×2 (08:48→21:09)
[2018-11-21] MEDS: Aspirin 81 mg Enteric Coated Tablet PO SCH (08:48)
[2018-11-21] MEDS: Enoxaparin Sodium 40 MG/0.4 ML SYRINGE SC SCH (08:48)
[2018-11-21] MEDS: Carvedilol 6.25 MG TAB PO SCH ×2 (08:48→16:45)
[2018-11-21] MEDS: Insulin Glargine 40 UNITS in Pre-Filled Syringe 1 EACH SC SCH (09:49)
[2018-11-21] MEDS: HumaLOG 300 UNITS/3 ML VIAL SC PRN ×2 (11:35→16:45)
--- NOTE | 2018-11-21 12:23 | PDOC.HOSPP ---
- Subjective Encounter Date: 11/21/18 Encounter Time: 10:21 Subjective: 64 y/o male with prior multiple CVA's, DM and others admitted due to intractable nausea and vomiting associated with AMS and ill feeling. Found to have hypotension, hyperglycemia blood glucose above 1000, WICHO and with elevated Lipase and troponin. Treated with IVF, pressors, and insulin infusion with improvement. Had cardiac cath which showed severe multiple vessel disease. CTS has seen patient and CABG is to take place on 11/22/2018. No new problem.Awaiting CABG tomorrow. - Objective Vital Signs & Weight: Vital Signs (12 hours) Temp Pulse Resp BP Pulse Ox 11/21/18 11:33 98.1 F 67 16 117/65 95 11/21/18 07:33 98.2 F 67 16 110/61 95 11/21/18 03:44 98.0 F 69 18 103/62 95 Weight Weight 167 lb 6.4 oz Most Recent Monitor Data Heart Rate from ECG 65 NIBP 115/74 NIBP BP-Mean 87 Respiration from ECG 19 SpO2 99 I&O: 11/20/18 11/21/18 11/22/18 06:59 06:59 06:59 Intake Total 1085 1670 Output Total 750 1500 Balance 335 170 Result Diagrams: 11/21/18 04:21 11/21/18 04:21 Additional Labs: Accuchecks 11/21/18 11/21/18 11/21/18 11:08 06:07 02:43 POC Glucose 287 H 139 H 66 L 11/20/18 11/20/18 20:10 17:06 POC Glucose 60 L 327 H ROS - Medication Medications: Active Medications Generic Name Dose Route Start Last Admin Trade Name Freq PRN Reason Stop Dose Admin Hydrocodone Bitart/Acetaminophen 1 tab 11/19/18 21:15 11/20/18 20:30 [place] 5/325 PO 1 tab Q6H PRN Administration Moderate Pain (4-6) Aspirin 81 mg 11/15/18 09:00 11/21/18 08:48 Ecotrin PO 81 mg DAILY GABRIEL Administration Atorvastatin Calcium 40 mg 11/14/18 21:00 11/20/18 20:30 Lipitor PO 40 mg HS GABRIEL Administration Carvedilol 6.25 mg 11/16/18 17:00 11/21/18 08:48 Coreg PO 6.25 mg BID-WM GABRIEL Administration Enoxaparin Sodium 40 mg 11/17/18 09:00 11/21/18 08:48 Lovenox SC 40 mg 0900 GABRIEL Administration Insulin Glargine 40 units/ 0.4 mls @ 0.2 mls/hr 11/20/18 09:00 11/21/18 09:49 Miscellaneous Medication SC 0.4 mls QAM GABRIEL Administration Insulin Human Lispro 0 units 11/21/18 10:00 11/21/18 11:35 Humalog SC 6 unit .MODERATE SLIDING SC PRN Administration Moderate [place] Scale Isosorbide Mononitrate 30 mg 11/17/18 09:00 11/21/18 08:48 Imdur Er PO 30 mg DAILY GABRIEL Administration Lisinopril 5 mg 11/19/18 21:00 11/21/18 08:48 Zestril PO 5 mg BID GABRIEL Administration Lorazepam 0.5 mg 11/15/18 21:41 11/20/18 20:31 Ativan PO 0.5 mg QPM PRN Administration Anxiety/Restlessness/Sleep Sertraline HCl 200 mg 11/15/18 09:00 11/21/18 08:48 Zoloft PO 200 mg DAILY GABRIEL Administration Sodium Chloride 10 ml 11/14/18 09:00 11/21/18 08:49 Flush - Normal Saline IVF 10 ml Q12HR GABRIEL Administration - Exam awake alert Eye: anicteric sclera ENT: normocephalic atraumatic, moist mucosa Neck: supple, no JVD Heart: RRR Respiratory: no wheezes, no rales, no ronchi Gastrointestinal: soft, non-tender, non-distended, normal bowel sounds Extremities: no cyanosis, no edema Neurological: CN's grossly intact, no focal deficits Psychiatric: normal affect, normal behavior, A&O x 3 Hosp A/P (1) Hypoglycemia due to insulin Code(s): E16.0 - DRUG-INDUCED HYPOGLYCEMIA WITHOUT COMA; T38.3X5A - ADVERSE EFFECT OF INSULIN AND ORAL HYPOGLYCEMIC DRUGS, INIT Status: Acute (2) Acute non-ST elevation myocardial infarction (NSTEMI) Code(s): I21.4 - NON-ST ELEVATION (NSTEMI) MYOCARDIAL INFARCTION Status: Acute (3) Hypotension Status: Acute (4) SIRS (systemic inflammatory response syndrome) Code(s): R65.10 - SIRS OF NON-INFECTIOUS ORIGIN W/O ACUTE ORGAN DYSFUNCTION Status: Acute (5) Elevated lipase Code(s): R74.8 - ABNORMAL LEVELS OF OTHER SERUM ENZYMES Status: Acute (6) Dehydration with hyponatremia Code(s): E87.1 - HYPO-OSMOLALITY AND HYPONATREMIA Status: Acute (7) WICHO (acute kidney injury) Code(s): N17.9 - ACUTE KIDNEY FAILURE, UNSPECIFIED Status: Acute (8) DKA (diabetic ketoacidoses) Code(s): E11.10 - TYPE 2 DIABETES MELLITUS WITH KETOACIDOSIS WITHOUT COMA Status: Acute (9) Hyperglycemia Code(s): R73.9 - HYPERGLYCEMIA, UNSPECIFIED Status: Acute (10) Hyperchloremic acidosis Code(s): E87.2 - ACIDOSIS Status: Acute (11) Acute metabolic encephalopathy Code(s): G93.41 - METABOLIC ENCEPHALOPATHY Status: Acute (12) CAD (coronary artery disease) Code(s): I25.10 - ATHSCL HEART DISEASE OF [place] CORONARY ARTERY W/O ANG PCTRS Status: Acute Qualifiers: Coronary Disease-Associated Artery/Lesion type: [place] artery (13) Diabetes mellitus with hyperglycemia Code(s): E11.65 - TYPE 2 DIABETES MELLITUS WITH HYPERGLYCEMIA Status: Acute - Plan Substitute regular insulin with Huamlog Continue other treatments. Avoid bedtime insulin coverage For CABG tomorrow
--- NOTE | 2018-11-21 14:50 | PRG ---
DATE OF SERVICE: 11/21/2018 SUBJECTIVE: Michel Marks' PFTs reviewed. His FEV1 was 2.79 L. He has no complaints. OBJECTIVE: VITAL SIGNS: He is afebrile, heart rate 67, LUNGS: Clear. IMPRESSION: 1. Moderate chronic obstructive pulmonary disease by pulmonary function testing. His PFTs do not put him into a prohibitive risk category for surgery. 2. Coronary artery disease, hopefully on the schedule for bypass tomorrow. 3. Diabetes poorly controlled, mainly secondary to failure to manage himself appropriately. We will continue to follow. Job ID: [id number]
[2018-11-21] MEDS: Lorazepam 0.5 MG TAB PO PRN (21:09)
[2018-11-21] MEDS: Atorvastatin Calcium 40 MG TAB PO SCH (21:09)
[2018-11-21] MEDS: HYDROcodone/Acetaminophen 5/325 mg Tablet PO PRN (21:10)
[2018-11-22 05:19] LABS: Anion Gap 9 mmol/L (10-20); BUN (Urea Nitrogen) 12 mg/dL (8.4-25.7); Calc. Creatinine Clearance 110 mL/min (70-130); Calcium 9.1 mg/dL (7.8-10.44); Carbon Dioxide 27 mmol/L (23-31); Chloride 105 mmol/L (98-107); Estimated GFR-MDRD Greater than 90; Glucose 75 mg/dL (80-115); Potassium 3.8 mmol/L (3.5-5.1); Sodium 137 mmol/L (136-145)
[2018-11-22] MEDS: Lisinopril 5 MG TAB PO SCH (05:23)
[2018-11-22] MEDS: Carvedilol 6.25 MG TAB PO SCH (05:24)
[2018-11-22] MEDS ORDERED: Midazolam HCl 2 mg/2 ml Vial ONE (06:37)
[2018-11-22] MEDS ORDERED: Fentanyl 100 MCG/2 ML VIAL ONE (06:37)
[2018-11-22] MEDS ORDERED: Vecuronium 10 MG VIAL ONE (06:38)
[2018-11-22] MEDS ORDERED: Dexmedetomidine 200 MCG/2 ML VIAL ONE (06:38)
[2018-11-22] MEDS ORDERED: Midazolam HCl 5 mg/5 ml Vial ONE (06:38)
[2018-11-22] MEDS ORDERED: Albumin 5% 500 ML ONE (06:38)
[2018-11-22] MEDS ORDERED: CABG-Vancomycin 1 GM in Premix Bag 1 BAG IVPB SCH (06:45)
[2018-11-22] MEDS ORDERED: Insulin Regular 300 UNITS/3 ML VIAL ONE (10:52)
[2018-11-22] MEDS ORDERED: Heparin 10,000 UNITS/1 ML VIAL 30,000 UNITS in Sodium Chloride 0.9% 1,000 ML FS SCH (11:00)
[2018-11-22] MEDS ORDERED: Phenylephrine HCL 10 MG/ML VIAL ONE ×3 (12:36→12:38)
[2018-11-22] MEDS ORDERED: Norepinephrine 8 MG/0.9% NS 250 ML IVPB PRN ×2 (14:19→15:15)
[2018-11-22] MEDS ORDERED: Bisacodyl 5 MG TAB PO PRN (14:19)
[2018-11-22] MEDS ORDERED: Bisacodyl 10 MG SUPP PR PRN (14:19)
[2018-11-22] MEDS ORDERED: hydrALAZINE 20 MG/ML VIAL SLOW IVP PRN (14:19)
[2018-11-22] MEDS ORDERED: Post-Op Insulin Drip Protocol IVPB ONE (14:19)
[2018-11-22] MEDS ORDERED: Nitroglycerin 50 MG/250 ML BOT 250 ML IVPB PRN (14:19)
[2018-11-22] MEDS ORDERED: Promethazine HCl 25 MG/ML VIAL IM PRN (14:19)
[2018-11-22] MEDS ORDERED: Fentanyl 100 MCG/2 ML VIAL SLOW IVP PRN (14:19)
[2018-11-22] MEDS ORDERED: Acetaminophen 325 MG TAB PO PRN (14:19)
[2018-11-22] MEDS ORDERED: Guaifenesin DM 100-10/5 ML UDCUP PO PRN (14:19)
[2018-11-22] MEDS ORDERED: Mag-Al 1200 mg/1200 mg/30 ML UDCUP PO PRN (14:19)
[2018-11-22] MEDS ORDERED: niCARdipine 25 MG in Sodium Chloride 0.9% 250 ML 240 ML IVPB PRN (14:19)
[2018-11-22] MEDS ORDERED: Ondansetron PF 4 MG/2 ML Vial IVP PRN (14:19)
[2018-11-22] MEDS ORDERED: HYDROcodone/Acetaminophen 5/325 mg Tablet PO PRN (14:19)
[2018-11-22] MEDS ORDERED: Hetastarch 6% 500 ML 500 ML IVPB PRN (14:19)
[2018-11-22] MEDS ORDERED: Morphine 4 MG/ML VIAL SLOW IVP PRN (14:19)
[2018-11-22] MEDS ORDERED: Insulin Regular 300 UNITS/3 ML VIAL SC PRN (14:28)
[2018-11-22] MEDS ORDERED: HUMULIN R 100 UNITS in Sodium Chloride 0.9% 100 ML IVPB SCH (14:28)
[2018-11-22] MEDS ORDERED: Dextrose 5% in Water 1,000 ML IV PRN (14:28)
[2018-11-22] MEDS ORDERED: Dextrose 50% Abboject 50 ML SYRINGE SLOW IVP PRN (14:28)
[2018-11-22 15:01] LABS: #Eosinphils 0.1 thou/uL (0.0-0.7); #Lymphocytes 1.3 thou/uL (1.20-3.40); #Monocytes 0.9 thou/uL (0.11-0.59); %Basophils 0.1 % (0.0-1.0); %Eosinophils 0.6 % (0.0-10.0); %Lymphocytes 8.5 % (21.0-51.0); %Neutrophils 84.8 % (42.0-75.0); Hemoglobin 10.4 g/dL (14.0-18.0); Mean Corpuscular HGB CONC 34.1 g/dL (32.0-36.0); Mean Corpuscular Hemoglobin 33.1 pg (27.0-31.0); Mean Platelet Volume 7.4 fL (7.4-10.4); Platelet Count 210 thou/uL (130-400); RBC Distribution Width 12.6 % (11.5-14.5); Red Blood Cell (RBC) Count 3.14 mill/uL (4.70-6.10); White Blood Cell (WBC) Count 15.3 thou/uL (4.8-10.8)
[2018-11-22] MEDS: Aspirin 81 mg Enteric Coated Tablet PO SCH (15:02)
[2018-11-22] MEDS: Sodium Chloride 0.9% 1,000 ML IV SCH (15:04)
[2018-11-22 15:05] LABS: INR-International Normal Ratio 1.3; PTT 29.5 SEC (22.9-36.1)
--- NOTE | 2018-11-22 15:06 | RAD ---
Chest one view HISTORY: Heart surgery. FINDINGS: Cardiac silhouette is magnified by projection. Pulmonary vasculature are unremarkable. Medi astinum is midline with postoperative changes. Tip of a right subclavian central venous catheter projects over the cavoatrial junction. Radiopaque drain overlies the midline mediastinum. No lobar co nsolidation or evidence of pneumothorax. IMPRESSION: Postoperative changes mediastinum without evidence of complication.
[2018-11-22] MEDS: Enoxaparin Sodium 40 MG/0.4 ML SYRINGE SC SCH (15:07)
[2018-11-22] MEDS: Insulin Glargine 40 UNITS in Pre-Filled Syringe 1 EACH SC SCH (15:07)
[2018-11-22 15:18] LABS: Anion Gap 7 mmol/L (10-20); BUN (Urea Nitrogen) 11 mg/dL (8.4-25.7); Calc. Creatinine Clearance 128 mL/min (70-130); Calcium 8.3 mg/dL (7.8-10.44); Carbon Dioxide 24 mmol/L (23-31); Chloride 111 mmol/L (98-107); Estimated GFR-MDRD Greater than 90; Glucose 121 mg/dL (80-115); Potassium 3.9 mmol/L (3.5-5.1); Sodium 138 mmol/L (136-145)
[2018-11-22] MEDS ORDERED: Acetaminophen 1,000 MG in Premix Bag 1 BAG IVPB SCH (16:15)
[2018-11-22] MEDS: Potassium Chloride 20 MEQ/100 ML PREMIX BAG IVPB PRN (16:24)
[2018-11-22] MEDS: Fentanyl 100 MCG/2 ML VIAL SLOW IVP PRN ×2 (17:00→22:06)
[2018-11-22] MEDS: Docusate 100 MG CAP PO SCH (19:33)
[2018-11-22] MEDS: HYDROcodone/Acetaminophen 5/325 mg Tablet PO PRN (19:33)
[2018-11-22] MEDS: Atorvastatin Calcium 40 MG TAB PO SCH (19:33)
[2018-11-22] MEDS: Famotidine/PF 20 mg/2ml Vial SLOW IVP SCH (19:34)
--- NOTE | 2018-11-22 20:54 | OP ---
DATE OF PROCEDURE: 11/22/2018 PROCEDURE PERFORMED: Coronary artery bypass grafting x4 with left internal mammary artery to the distal left anterior descending and reverse greater saphenous vein grafts from the aorta to the ramus intermedius, aorta to the obtuse marginal, and aorta to the posterior descending artery. PREOPERATIVE DIAGNOSIS: Coronary artery disease status post acute myocardial infarction. POSTOPERATIVE DIAGNOSIS: Coronary artery disease status post acute myocardial infarction. ASSISTANTS: 1. Enrrique Connolly MD. 2. Ramiro Lehman MD. ANESTHESIA: General endotracheal anesthesia. INDICATIONS FOR PROCEDURE: The patient is a 63-year-old poorly-controlled diabetic, who presented after having spent 2 days working out in the heat with nausea, vomiting, confusion, and lethargy. On screening labs, he was found to have a glucose of just over a 1000, but he also had a mildly elevated troponin. During the course of his pressor and fluid resuscitation, followup labs demonstrated a mild increase in his troponin, and in the course of his early hospital stay, his troponin karen to 44. Coincident with troponin of approximately 25, his CPK was 927. No additional cardiac enzymes were performed. Cardiac catheterization demonstrated severe 3-vessel coronary artery disease with an LVEF of 30% to 35% with global hypokinesis and an EDP of approximately 20. He has been observed as he has recovered from his metabolic derangements and has had an uncomplicated post infarction course. He was now taken to the operating room for coronary revascularization. FINDINGS: Pump time, 82 minutes. Crossclamp time, 42 minutes. Good quality RONALDO. Good quality saphenous vein that became somewhat small in the mid calf. The LAD was a 1.5 to 2 mm vessel with diffuse fine stippling of plaque. The ramus intermedius was diffusely diseased proximally on into its midportion. It was about a 2 mm fairly soft vessel quite distally, where it ran intramyocardially. The OM was about a 2 mm vessel, that was diffusely diseased proximally, but was good quality where grafted. The PDA was soft distally just beyond the extent of the palpable plaquing where it was grafted. It was about 1.5 mm. The pericardium was closed. Post induction of anesthesia, a transesophageal echocardiography showed an ejection fraction of around 60% without any wall motion abnormalities. Immediately upon releasing the crossclamp, ST elevations were noted that were fairly persistent in spite of there being no apparent problems with the grafts, and the MERRY was still showing a similar EF and no wall motion abnormalities. The pericardium was closed. DESCRIPTION OF PROCEDURE: After informed consent was obtained, the patient was taken to the operating room and placed in the supine position on the operating table. After the induction of general anesthesia, the patient's greater saphenous vein in the left leg was ultrasonographically mapped and marked. His right upper chest was then prepped and draped in sterile fashion, and he was placed in Trendelenburg. A triple-lumen central line kit was used to place a right subclavian central line by the Seldinger technique. All 3 ports easily aspirated and flushed. The line was secured. The patient's torso, groins, and lower extremities were prepped and draped in sterile fashion. The greater saphenous vein was exposed just above the left knee, and using that as the port site, it was endoscopically harvested from groin to mid calf. Using stab incisions for the ligation and division points proximally and distally, the vein was prepared for use as a graft, and the port site was closed in layers of subcutaneous and subcuticular Vicryl. A median sternotomy was performed. The left pleura was mobilized to allow for an extrapleural exposure of the left RONALDO. A small rent was made anteriorly in the pleura. The mammary was harvested as a skeletonized in-situ graft from the level of the xiphoid to the level of the subclavian vein. Side branches were controlled with small hemoclips. The patient was heparinized. The mammary was ligated and divided distally. There was excellent flow through the mammary, which was instilled intraluminally with papaverine solution. The mammary bed was inspected for hemostasis. Medial aspects of the pleura were mobilized from the apex to the mid body of the sternum. The RONALDO retractor was replaced with a Genao retractor. The pericardium was opened and marsupialized. The aorta was palpated and was soft. The intrapericardial aorta was relatively short. A double concentric pursestring of 2-0 [place] was placed in the ascending aorta at the base of the arch well above the pericardial reflection. A single pursestring was placed in the right atrial appendage. Aortic and venous cannulae were inserted and secured by their pursestrings. Cardiopulmonary bypass was instituted, and the patient was systemically cooled. A longitudinal slit was made in the pericardium anterior to the left phrenic nerve, through which the mammary could be passed. Plane between the aorta and the pulmonary artery was developed, and the aorta was again manually inspected, and no palpable plaque was appreciated. An aortic crossclamp was applied, and cardioplegia was administered through an aortic root needle. When arrest have been achieved, attention was turned to the obtuse marginal. It was exposed and opened fairly distally beyond the palpable plaquing. Saphenous vein was reversed and anastomosed there end-to-side with running Prolene suture, and the anastomosis was tested by flushing cold saline down the graft. Attention was then turned to the ramus. It was followed out quite distally to get beyond heavy plaquing even in the intramyocardial portion of it. At the point where it became a good quality vessel, it was opened and grafted in a similar fashion. Attention was then turned to the PDA. It was exposed and opened just beyond the extent of the palpable plaquing in its proximal and mid portions, where it emerged from the fat pad at the AV groove adjacent to the great vein. It was then grafted with saphenous vein with running Prolene suture. The LAD was then opened somewhat distally, where it was relatively soft. The mammary was anastomosed there with running 7-0 Prolene and tacked to the epicardium. The aortic crossclamp was replaced with a partial occluding clamp, and 2 aortotomies were made in the ascending aorta with a scalpel and punch incorporating the root needle site into the more proximal aortotomy. Because the vein became somewhat small, it was anticipated that one of the ramus graft would need to be cut a little bit short to reach the aorta in order to have adequate length of good quality vein for the PDA graft. The PDA graft was brought along the right side of the heart near the AV groove and anastomosed to the more proximal aortotomy end-to-side with running Prolene, and the OM graft was anastomosed to the more distal aortotomy. When distended, the ramus graft fairly easily reached the adler of the OM graft proximal anastomosis. A [place] blade and [place] scissors were used to create a venotomy in that graft adler, and the ramus graft was anastomosed to it end-to-side with running Prolene. The partial occluding clamp was removed, and the vein grafts were de-aired, the bulldogs were removed from them, and the proximal anastomoses were marked with small hemoclips. The anastomoses were inspected for hemostasis. The posterior pericardial drain was brought out through a separate incision and secured to the skin with suture. Right atrial and right ventricular temporary epicardial pacing wires were placed. Immediately upon releasing the crossclamp, the ST elevation could be appreciated in the monitor leads, and this did not change appreciably with establishment of the antegrade flow through the vein grafts. There was a palpable pulse in the LAD graft, and there was no kinking of it, and the vein grafts all stripped and refilled briskly. There was no apparent air bubbles seen upon inspection. Transesophageal echocardiography showed a left ventricular ejection fraction of approximately 60% with no wall motion abnormalities, which corresponded with the clinical assessment of the heart on visual inspection. The patient was then easily from cardiopulmonary bypass. Aortic and venous cannulae were removed, and the pursestring secured. Protamine was administered. When hemostasis was adequate, an anterior mediastinal drain was placed, and the pericardium was easily closed over with running Vicryl. The small rent in the left pleura was repaired with a running Prolene suture, and the suture line was secured under a Valsalva maneuver. The cut surfaces of the sternum were treated with platelet rich GPS and vancomycin paste. The sternum was reapproximated with #7 stainless steel wires. The soft tissues were irrigated and treated with platelet poor GPS. The fascia was closed over the wires with running #1 Vicryl. Subcutaneous tissue was reapproximated with running 2-0 Vicryl. The skin was closed with a running 3-0 Vicryl subcuticular suture. The wounds were dressed. The patient was awakened and extubated in the operating room and taken to the intensive care unit in stable condition. Job ID: [id number]
[2018-11-22 21:51] LABS: Hemoglobin 9.3 g/dL (14.0-18.0)
[2018-11-22 22:06] LABS: Potassium 4.8 mmol/L (3.5-5.1)
[2018-11-23] MEDS: HYDROcodone/Acetaminophen 5/325 mg Tablet PO PRN ×4 (00:42→19:47)
[2018-11-23] MEDS: Fentanyl 100 MCG/2 ML VIAL SLOW IVP PRN (03:02)
[2018-11-23] MEDS: Sodium Chloride 0.9% 1,000 ML IV SCH (03:03)
[2018-11-23 05:24] LABS: #Lymphocytes 1.5 thou/uL (1.20-3.40); #Monocytes 2.5 thou/uL (0.11-0.59); #Neutrophils 13.4 thou/uL (1.40-6.50); %Basophils 0.2 % (0.0-1.0); %Eosinophils 0.1 % (0.0-10.0); %Lymphocytes 8.7 % (21.0-51.0); %Monocytes 14.1 % (0.0-10.0); Hemoglobin 9.2 g/dL (14.0-18.0); Mean Corpuscular HGB CONC 32.6 g/dL (32.0-36.0); Platelet Count 260 thou/uL (130-400); RBC Distribution Width 12.6 % (11.5-14.5); Red Blood Cell (RBC) Count 2.87 mill/uL (4.70-6.10); White Blood Cell (WBC) Count 17.4 thou/uL (4.8-10.8)
[2018-11-23 05:46] LABS: Anion Gap 10 mmol/L (10-20); BUN (Urea Nitrogen) 15 mg/dL (8.4-25.7); Calc. Creatinine Clearance 117 mL/min (70-130); Calcium 8.1 mg/dL (7.8-10.44); Carbon Dioxide 19 mmol/L (23-31); Chloride 109 mmol/L (98-107); Estimated GFR-MDRD Greater than 90; Glucose 118 mg/dL (80-115); Potassium 4.4 mmol/L (3.5-5.1); Sodium 134 mmol/L (136-145)
[2018-11-23] MEDS: Docusate 100 MG CAP PO SCH ×2 (08:40→19:47)
[2018-11-23] MEDS: Famotidine/PF 20 mg/2ml Vial SLOW IVP SCH ×2 (08:40→19:46)
[2018-11-23] MEDS: Aspirin 81 mg Enteric Coated Tablet PO SCH (08:40)
--- NOTE | 2018-11-23 08:42 | RAD ---
CHEST 1 VIEW: Date: 11/23/18 HISTORY: Heart surgery. Follow-up. COMPARISON: 11/22/18. FINDINGS: Cardiac silhouette is magnified by projection. Pulmonary vasculature is unremarkable. Mediastinum is midline with postoperative changes and aortic calcification. Drains and lines appear unchanged in pos ition. No evidence of pneumothorax. Lungs are well inflated. IMPRESSION: Stable postoperative appearance of the chest. POS: [facility]
[2018-11-23] MEDS ORDERED: Dextrose 50% Abboject 50 ML SYRINGE SLOW IVP PRN (08:50)
[2018-11-23] MEDS ORDERED: Insulin Regular 300 UNITS/3 ML VIAL SC PRN (08:50)
[2018-11-23] MEDS ORDERED: Dextrose 5% in Water 1,000 ML IV PRN (08:50)
[2018-11-23] MEDS: Furosemide 40 MG/4 ML VIAL SLOW IVP SCH ×2 (09:36→13:52)
[2018-11-23] MEDS: Ketorolac Tromethamine 30 MG/ML VIAL IVP SCH ×3 (09:36→20:50)
--- NOTE | 2018-11-23 10:12 | PRG ---
DATE OF SERVICE: 11/23/2018 SUBJECTIVE: Mr. Marks was weaned per protocol overnight. He is doing well this morning. He is still little dysarthric and this may be close to his baseline. OBJECTIVE: OBJECTIVE: VITAL SIGNS: Blood pressure 94/56, heart rate 78, respiratory rate 15, oximetry is 100%. LUNGS: Clear. HEART: Regular rhythm. S1, S2 normal. ABDOMEN: Soft, nontender. EXTREMITIES: Without edema. LABORATORY DATA: White count 17.4, hemoglobin 9.2, and platelets 260. Sodium 134, potassium 4.4, chloride 109, bicarb 19, BUN 15, and creatinine 0.7. IMPRESSION: 1. Status post coronary artery bypass grafting. 2. Status post admission for hyperosmolar state secondary noncompliance with diabetes management. 3. Type 1 diabetes since he was 26 with diabetic ketoacidosis. 4. on admission as well. 5. Tobacco abuse up until this admission with an FEV1 of 2.79. We will continue to follow. He appears to be stable at this time. Job ID: [id number]
[2018-11-23] MEDS: HumaLOG 300 UNITS/3 ML VIAL SC PRN (13:54)
--- NOTE | 2018-11-23 14:16 | PDOC.HOSPP ---
- Subjective Encounter Date: 11/23/18 Encounter Time: 11:14 Subjective: 64 y/o male with prior multiple CVA's, DM and others admitted due to intractable nausea and vomiting associated with AMS and ill feeling. Found to have hypotension, hyperglycemia blood glucose above 1000, WICHO and with elevated Lipase and troponin. Treated with IVF, pressors, and insulin infusion with improvement. Had cardiac cath which showed severe multiple vessel disease. Seen by CTS and subsequently had CABG on 11/22/2018. Doing well post operatively. - Objective Vital Signs & Weight: Vital Signs (12 hours) Temp Pulse Ox 11/23/18 12:00 98.0 F 11/23/18 08:00 97.8 F 100 11/23/18 04:00 98.0 F Weight Admit Weight 179 lb 0.246 oz Weight 179 lb 10.828 oz Most Recent Monitor Data Heart Rate from ECG 88 NIBP 107/67 NIBP BP-Mean 80 Respiration from ECG 22 SpO2 99 I&O: 11/22/18 11/23/18 11/24/18 06:59 06:59 06:59 Intake Total 1270 3902.5 360 Output Total 725 925 230 Balance 545 2977.5 130 Result Diagrams: 11/23/18 04:09 11/23/18 04:09 Additional Labs: Accuchecks 11/23/18 11/23/18 11/23/18 11:22 07:56 06:06 POC Glucose 161 H 102 117 H 11/23/18 11/23/18 11/23/18 05:15 04:10 03:13 POC Glucose 112 H 115 H 105 11/23/18 11/23/18 11/23/18 02:03 01:07 00:10 POC Glucose 128 H 137 H 156 H 11/22/18 11/22/18 11/22/18 23:09 21:58 21:33 POC Glucose 199 H 189 H 182 H 11/22/18 11/22/18 11/22/18 20:12 19:21 18:31 POC Glucose 169 H 135 H 138 H 11/22/18 11/22/18 11/22/18 17:21 16:38 15:30 POC Glucose 99 111 H 122 H 11/22/18 14:52 POC Glucose 121 H ROS - Medication Medications: Active Medications Generic Name Dose Route Start Last Admin Trade Name Freq PRN Reason Stop Dose Admin Hydrocodone Bitart/Acetaminophen 2 tab 11/22/18 14:19 11/23/18 11:23 [place] 5/325 PO 2 tab Q4H PRN Administration Severe Pain (7-10) Albumin Human 12.5 gm 11/22/18 14:19 11/22/18 23:00 Albumin 5% IVPB 11/23/18 14:20 12.5 gm Q6H PRN Administration To Maintain SBP> 90 mmHG Albumin Human 25 gm 11/22/18 14:19 11/22/18 15:05 Albumin 5% IVPB 11/23/18 14:20 25 gm Q6H PRN Administration To Maintain SBP > 90 mmHG Aspirin 81 mg 11/15/18 09:00 11/23/18 08:40 Ecotrin PO 81 mg DAILY GABRIEL Administration Atorvastatin Calcium 40 mg 11/14/18 21:00 11/22/18 19:33 Lipitor PO 40 mg HS GABRIEL Administration Docusate Sodium 100 mg 11/22/18 21:00 11/23/18 08:40 Colace PO 100 mg BID GABRIEL Administration Famotidine 20 mg 11/22/18 21:00 11/23/18 08:40 Pepcid SLOW IVP 20 mg Q12HR GABRIEL Administration Fentanyl 25 mcg 11/22/18 14:19 11/22/18 15:18 Sublimaze SLOW IVP 11/24/18 10:12 25 mcg Q2H PRN Administration Moderate Pain (4-6) Fentanyl 50 mcg 11/22/18 14:19 11/23/18 03:02 Sublimaze SLOW IVP 11/24/18 10:12 50 mcg Q2H PRN Administration Severe Pain (7-10) Norepinephrine Bitartrate 250 mls @ 0 mls/hr 11/22/18 15:15 11/22/18 15:34 Levophed IVPB 250 mls PRN PRN Administration To maintain SBP > 90 mmHG Protocol Titrate Ketorolac Tromethamine 30 mg 11/23/18 09:00 11/23/18 09:36 Toradol IVP 11/24/18 03:01 30 mg Q6H GABRIEL Administration Ondansetron HCl 4 mg 11/22/18 14:19 11/22/18 18:19 Zofran IVP 4 mg Q6H PRN Administration Nausea/Vomiting Potassium Chloride 20 meq 11/22/18 14:19 11/22/18 16:24 Kcl IVPB 20 meq PRN PRN Administration K level </= 4.0 Sertraline HCl 200 mg 11/15/18 09:00 11/23/18 08:39 Zoloft PO 200 mg DAILY GABRIEL Administration Sodium Chloride 10 ml 11/14/18 09:00 11/23/18 09:41 Flush - Normal Saline IVF 10 ml Q12HR GABRIEL Administration - Exam awake alert Eye: anicteric sclera ENT: normocephalic atraumatic Neck: supple, symmetric Heart: RRR Respiratory: no wheezes, no ronchi Respiratory - other findings: fair air entry bilaterally with some transmitted sound. Chest tube noted Gastrointestinal: soft, normal bowel sounds Extremities: 1+ LE edema Extremeties - other findings: Right leg Neurological: CN's grossly intact, no focal deficits Psychiatric: normal affect, A&O x 3 Hosp A/P (1) CAD (coronary artery disease) Code(s): I25.10 - ATHSCL HEART DISEASE OF [place] CORONARY ARTERY W/O ANG PCTRS Status: Acute Qualifiers: Coronary Disease-Associated Artery/Lesion type: [place] artery (2) Hypoglycemia due to insulin Code(s): E16.0 - DRUG-INDUCED HYPOGLYCEMIA WITHOUT COMA; T38.3X5A - ADVERSE EFFECT OF INSULIN AND ORAL HYPOGLYCEMIC DRUGS, INIT Status: Acute (3) Acute non-ST elevation myocardial infarction (NSTEMI) Code(s): I21.4 - NON-ST ELEVATION (NSTEMI) MYOCARDIAL INFARCTION Status: Acute (4) Hypotension Status: Acute (5) SIRS (systemic inflammatory response syndrome) Code(s): R65.10 - SIRS OF NON-INFECTIOUS ORIGIN W/O ACUTE ORGAN DYSFUNCTION Status: Acute (6) Elevated lipase Code(s): R74.8 - ABNORMAL LEVELS OF OTHER SERUM ENZYMES Status: Acute (7) Dehydration with hyponatremia Code(s): E87.1 - HYPO-OSMOLALITY AND HYPONATREMIA Status: Acute (8) WICHO (acute kidney injury) Code(s): N17.9 - ACUTE KIDNEY FAILURE, UNSPECIFIED Status: Acute (9) DKA (diabetic ketoacidoses) Code(s): E11.10 - TYPE 2 DIABETES MELLITUS WITH KETOACIDOSIS WITHOUT COMA Status: Acute (10) Hyperglycemia Code(s): R73.9 - HYPERGLYCEMIA, UNSPECIFIED Status: Acute (11) Hyperchloremic acidosis Code(s): E87.2 - ACIDOSIS Status: Acute (12) Acute metabolic encephalopathy Code(s): G93.41 - METABOLIC ENCEPHALOPATHY Status: Acute (13) Diabetes mellitus with hyperglycemia Code(s): E11.65 - TYPE 2 DIABETES MELLITUS WITH HYPERGLYCEMIA Status: Acute (14) S/P CABG (coronary artery bypass graft) Code(s): Z95.1 - PRESENCE OF AORTOCORONARY BYPASS GRAFT Status: Acute (15) Acute blood loss as cause of postoperative anemia Code(s): D62 - ACUTE POSTHEMORRHAGIC ANEMIA Status: Acute - Plan Start Incentive spirometry Continue other treatments including insulin therapy Follow CBC and BMP
--- NOTE | 2018-11-23 16:23 | EKG ---
Test Reason : POSTOP CABG Blood Pressure : / mmHG Vent. Rate : 063 BPM Atrial Rate : 063 BPM P-R Int : 196 ms QRS Dur : 076 ms QT Int : 424 ms P-R-T Axes : 083 -50 084 degrees QTc Int : 433 ms Sinus rhythm with Fusion complexes Left axis deviation Low voltage QRS Cannot rule out Anterior infarct , age undetermined Inferolateral injury pattern ACUTE [place] / STEMI Abnormal ECG Confirmed by LEONA PEREZ, DR. Hood ([id number]) on 11/23/2018 4:22:48 PM Referred By: SIG Confirmed By:DR. Erwin DELGADILLO MD
--- NOTE | 2018-11-23 16:28 | EKG ---
Test Reason : Blood Pressure : / mmHG Vent. Rate : 079 BPM Atrial Rate : 079 BPM P-R Int : 158 ms QRS Dur : 086 ms QT Int : 398 ms P-R-T Axes : 078 -84 076 degrees QTc Int : 456 ms Normal sinus rhythm Left axis deviation Low voltage QRS Possible Lateral infarct , new Inferior-posterior infarct , possibly acute * ACUTE [place] * Abnormal ECG When compared with ECG of 14-NOV-2018 00:50, Left anterior fascicular block is no longer Present Acute Lateral infarct is now Present Inferior-posterior infarct is now Present Confirmed by LEONA PEREZ, DR. Hood (4) on 11/23/2018 4:27:39 PM Referred By: BARI Confirmed By:DR. Erwin DELGADILLO MD
[2018-11-23] MEDS ORDERED: Insulin Glargine 20 UNITS in Pre-Filled Syringe 1 EACH SC SCH (18:00)
[2018-11-23] MEDS: Insulin Regular 300 UNITS/3 ML VIAL SC PRN (19:46)
[2018-11-23] MEDS: Atorvastatin Calcium 40 MG TAB PO SCH (19:47)
[2018-11-23] MEDS ORDERED: Insulin Regular 300 UNITS/3 ML VIAL SC SCH (21:30)
[2018-11-24] MEDS: Ketorolac Tromethamine 30 MG/ML VIAL IVP SCH (02:23)
[2018-11-24 05:18] LABS: Anion Gap 10 mmol/L (10-20); BUN (Urea Nitrogen) 30 mg/dL (8.4-25.7); Calc. Creatinine Clearance 87 mL/min (70-130); Calcium 8.4 mg/dL (7.8-10.44); Carbon Dioxide 22 mmol/L (23-31); Chloride 104 mmol/L (98-107); Estimated GFR-MDRD 73; Glucose 131 mg/dL (80-115); Potassium 4.3 mmol/L (3.5-5.1); Sodium 132 mmol/L (136-145)
[2018-11-24] MEDS: HYDROcodone/Acetaminophen 5/325 mg Tablet PO PRN ×3 (05:22→20:40)
[2018-11-24 05:30] LABS: Band 4 % (5-11); Eosinophils 2 % (0-10); Hemoglobin 8.2 g/dL (14.0-18.0); Lymphocytes 14 % (21-51); MDiff Complete? YES; Mean Corpuscular HGB CONC 33.2 g/dL (32.0-36.0); Mean Corpuscular Hemoglobin 32.6 pg (27.0-31.0); Mean Platelet Volume 8.1 fL (7.4-10.4); Monocytes 11 % (0-10); Neutrophil 68 % (42-75); Platelet Count 214 thou/uL (130-400); Platelet Morphology Comment Appears Adequate; RBC Distribution Width 12.8 % (11.5-14.5); RBC Morphology Normal; Reactive Lymphocytes 1 % (0-10); White Blood Cell (WBC) Count 10.5 thou/uL (4.8-10.8)
[2018-11-24] MEDS: Potassium Chloride 20 MEQ/100 ML PREMIX BAG IVPB PRN (07:11)
--- NOTE | 2018-11-24 08:00 | RAD ---
EXAM: Single view of the chest HISTORY: Status post open heart surgery COMPARISON: 11/23/2018 FINDINGS: Single view of the chest shows a normal sized cardiomediastinal silhouette. The patient is status post sternotomy. The central venous catheter is unchanged in position. The mediastinal drains are unchanged in position. No pneumothorax is seen. There is no evidence of consolidation, ma ss, or pleural effusion. The bones are unremarkable. IMPRESSION: Stable exam
[2018-11-24] MEDS: Docusate 100 MG CAP PO SCH ×2 (08:40→20:39)
[2018-11-24] MEDS: Aspirin 81 mg Enteric Coated Tablet PO SCH (08:40)
[2018-11-24] MEDS: Famotidine/PF 20 mg/2ml Vial SLOW IVP SCH ×2 (08:40→23:36)
[2018-11-24] MEDS: Insulin Glargine 20 UNITS in Pre-Filled Syringe 1 EACH SC SCH (09:16)
--- NOTE | 2018-11-24 10:08 | PRG ---
DATE OF SERVICE: 11/24/2018 SUBJECTIVE: The patient is feeling well. Has no acute complaints. OBJECTIVE: VITAL SIGNS: On exam, temperature 98.2, pulse 97, and blood pressure 102/64. HEENT: Unremarkable. NECK: No adenopathy or JVD. LUNGS: Clear. CARDIAC: S1 and S2 regular without audible murmur. He has a bandage over his sternum. ABDOMEN: Soft and nontender. EXTREMITIES: No edema. IMAGING DATA: Chest x-ray shows a mediastinal tube that is still in place. ASSESSMENT: Status post coronary artery bypass graft surgery with stable pulmonary status. PLAN: 1. I will assume he can be transferred to the floor as soon as his chest tube was pulled. 2. Blood sugars are somewhat high on the fingersticks, but the blood stick this morning actually showed blood sugar of 131, so I am not sure why there is discrepancy. Job ID: [id number]
[2018-11-24] MEDS: Insulin Regular 300 UNITS/3 ML VIAL SC PRN ×3 (11:08→20:42)
[2018-11-24] MEDS ORDERED: Nitroglycerin 0.4 MG TAB (25 Tab Bottle) SL PRN (13:53)
--- NOTE | 2018-11-24 14:48 | PDOC.HOSPP ---
- Subjective Encounter Date: 11/24/18 Encounter Time: 11:46 Subjective: 64 y/o male with prior multiple CVA's, DM and others admitted due to intractable nausea and vomiting associated with AMS and ill feeling. Found to have hypotension, hyperglycemia blood glucose above 1000, WICHO and with elevated Lipase and troponin. Treated with IVF, pressors, and insulin infusion with improvement. Had cardiac cath which showed severe multiple vessel disease. Seen by CTS and subsequently had CABG on 11/22/2018. Doing well post operatively. Chest pain is getting better. No fever or SOB. - Objective Vital Signs & Weight: Vital Signs (12 hours) Temp Pulse Ox 11/24/18 12:00 98.3 F 11/24/18 07:15 97 11/24/18 05:00 98.2 F Weight Admit Weight 179 lb 0.246 oz Weight 178 lb 12.718 oz Most Recent Monitor Data Heart Rate from ECG 92 NIBP 121/64 NIBP BP-Mean 83 Respiration from ECG 21 SpO2 100 I&O: 11/23/18 11/24/18 11/25/18 06:59 06:59 06:59 Intake Total 3902.5 2297 820 Output Total 925 1350 500 Balance 2977.5 947 320 Result Diagrams: 11/24/18 04:49 11/24/18 04:49 Additional Labs: Accuchecks 11/24/18 11/23/18 11/23/18 11:07 23:31 21:59 POC Glucose 186 H 372 H 385 H 11/23/18 11/23/18 11/23/18 20:55 19:45 17:33 POC Glucose 430 H 451 H 402 H 11/22/18 11/22/18 09:45 08:32 POC Glucose 121 H 105 ROS - Medication Medications: Active Medications Generic Name Dose Route Start Last Admin Trade Name Freq PRN Reason Stop Dose Admin Hydrocodone Bitart/Acetaminophen 2 tab 11/22/18 14:19 11/24/18 13:39 [place] 5/325 PO 2 tab Q4H PRN Administration Severe Pain (7-10) Atorvastatin Calcium 40 mg 11/14/18 21:00 11/23/18 19:47 Lipitor PO 40 mg HS GABRIEL Administration Docusate Sodium 100 mg 11/22/18 21:00 11/24/18 08:40 Colace PO 100 mg BID GABRIEL Administration Famotidine 20 mg 11/22/18 21:00 11/24/18 08:40 Pepcid SLOW IVP 20 mg Q12HR GABRIEL Administration Insulin Glargine 20 units/ 0.2 mls @ 0 mls/hr 11/24/18 09:00 11/24/18 09:16 Miscellaneous Medication SC 0.2 mls QAM GABRIEL Administration Insulin Human Regular 0 units 11/23/18 17:52 11/24/18 11:08 Humulin R SC 3 unit .AGGRESSIVE SLIDING PRN Administration AGGRESSIVE SLIDING SCALE Protocol Ondansetron HCl 4 mg 11/22/18 14:19 11/22/18 18:19 Zofran IVP 4 mg Q6H PRN Administration Nausea/Vomiting Sertraline HCl 200 mg 11/15/18 09:00 11/24/18 08:40 Zoloft PO 200 mg DAILY GABRIEL Administration - Exam awake alert Eye: PERRL, anicteric sclera ENT: normocephalic atraumatic Neck: supple, symmetric Heart: RRR, murmur present Respiratory: no wheezes, no rales, no ronchi Respiratory - other findings: Fair air entry with few scattered transmitted sound. Chest tube in place Gastrointestinal: soft, non-tender, non-distended, normal bowel sounds Extremeties - other findings: mild bilateral leg edema Neurological: CN's grossly intact, no focal deficits Psychiatric: normal affect, A&O x 3 Hosp A/P (1) CAD (coronary artery disease) Code(s): I25.10 - ATHSCL HEART DISEASE OF [place] CORONARY ARTERY W/O ANG PCTRS Status: Acute Qualifiers: Coronary Disease-Associated Artery/Lesion type: [place] artery (2) Hypoglycemia due to insulin Code(s): E16.0 - DRUG-INDUCED HYPOGLYCEMIA WITHOUT COMA; T38.3X5A - ADVERSE EFFECT OF INSULIN AND ORAL HYPOGLYCEMIC DRUGS, INIT Status: Acute (3) Acute non-ST elevation myocardial infarction (NSTEMI) Code(s): I21.4 - NON-ST ELEVATION (NSTEMI) MYOCARDIAL INFARCTION Status: Acute (4) Hypotension Status: Acute (5) SIRS (systemic inflammatory response syndrome) Code(s): R65.10 - SIRS OF NON-INFECTIOUS ORIGIN W/O ACUTE ORGAN DYSFUNCTION Status: Acute (6) Elevated lipase Code(s): R74.8 - ABNORMAL LEVELS OF OTHER SERUM ENZYMES Status: Acute (7) Dehydration with hyponatremia Code(s): E87.1 - HYPO-OSMOLALITY AND HYPONATREMIA Status: Acute (8) WICHO (acute kidney injury) Code(s): N17.9 - ACUTE KIDNEY FAILURE, UNSPECIFIED Status: Acute (9) DKA (diabetic ketoacidoses) Code(s): E11.10 - TYPE 2 DIABETES MELLITUS WITH KETOACIDOSIS WITHOUT COMA Status: Acute (10) Hyperglycemia Code(s): R73.9 - HYPERGLYCEMIA, UNSPECIFIED Status: Acute (11) Hyperchloremic acidosis Code(s): E87.2 - ACIDOSIS Status: Acute (12) Acute metabolic encephalopathy Code(s): G93.41 - METABOLIC ENCEPHALOPATHY Status: Acute (13) Diabetes mellitus with hyperglycemia Code(s): E11.65 - TYPE 2 DIABETES MELLITUS WITH HYPERGLYCEMIA Status: Acute (14) S/P CABG (coronary artery bypass graft) Code(s): Z95.1 - PRESENCE OF AORTOCORONARY BYPASS GRAFT Status: Acute (15) Acute blood loss as cause of postoperative anemia Code(s): D62 - ACUTE POSTHEMORRHAGIC ANEMIA Status: Acute - Plan Restart lantus at a lower dose given decreased oral intake. We will monitor glycemic control and increase lantus as needed Continue sliding scale insulin. Follow CBC and BMP Transfusion as Per CTS Increase activity
--- NOTE | 2018-11-24 15:28 | PDOC.CTH ---
Cardiology Progress Note - Subjective He is doing better. No new issues. Passing gas but no BM yet. - Objective Vital Signs Temp Pulse Resp BP Pulse Ox 11/24/18 15:17 98.2 F 92 18 104/58 L 99 11/24/18 12:00 98.3 F 11/24/18 07:15 97 11/24/18 05:00 98.2 F Admit Weight 179 lb 0.246 oz Weight 178 lb 12.718 oz 11/23/18 11/24/18 11/25/18 06:59 06:59 06:59 Intake Total 3902.5 2297 820 Output Total 925 1350 500 Balance 2977.5 947 320 - Physical Examination General/Neuro: alert & oriented x3, NAD Neck: no JVD present Lungs: CTA, unlabored respirations Heart: RRR Abdomen: NT/ND Extremities: + edema B (1+) - Telemetry Telemetry Rhythm: NSR - Labs Result Diagrams: 11/24/18 04:49 11/24/18 04:49 Troponin/CKMB Troponin I 44.170 ng/mL (< 0.028) H* 11/14/18 04:35 - Assessment/Plan 1. Multivessel CAD. 2. S/P CABG x 4, HALL to LAD, SVG to IR, SVG to OM, SVG to PDA. 3. Type 1 diabetes. 4. DKA on admission 5. Non compliance. PLAN: - Stable for transfer to telemetry. - ASA/statin for life. - BP borderline low for ACEI or BB.
[2018-11-24] MEDS: Famotidine 20 MG TAB PO SCH (20:39)
[2018-11-24] MEDS: Atorvastatin Calcium 40 MG TAB PO SCH (20:39)
[2018-11-25 06:01] LABS: #Lymphocytes 1.6 thou/uL (1.20-3.40); #Monocytes 1.8 thou/uL (0.11-0.59); #Neutrophils 9.1 thou/uL (1.40-6.50); %Basophils 0.2 % (0.0-1.0); %Eosinophils 0.4 % (0.0-10.0); %Lymphocytes 12.9 % (21.0-51.0); %Monocytes 14.3 % (0.0-10.0); %Neutrophils 72.2 % (42.0-75.0); Hemoglobin 7.7 g/dL (14.0-18.0); Mean Corpuscular HGB CONC 33.7 g/dL (32.0-36.0); Mean Corpuscular Hemoglobin 32.9 pg (27.0-31.0); Mean Corpuscular Volume 97.6 fL (78.0-98.0); Mean Platelet Volume 7.8 fL (7.4-10.4); Platelet Count 242 thou/uL (130-400); RBC Distribution Width 12.8 % (11.5-14.5); Red Blood Cell (RBC) Count 2.35 mill/uL (4.70-6.10); White Blood Cell (WBC) Count 12.5 thou/uL (4.8-10.8)
[2018-11-25 06:23] LABS: Anion Gap 10 mmol/L (10-20); BUN (Urea Nitrogen) 17 mg/dL (8.4-25.7); Calc. Creatinine Clearance 125 mL/min (70-130); Calcium 8.4 mg/dL (7.8-10.44); Carbon Dioxide 23 mmol/L (23-31); Chloride 105 mmol/L (98-107); Estimated GFR-MDRD Greater than 90; Glucose 84 mg/dL (80-115); Potassium 4.4 mmol/L (3.5-5.1); Sodium 134 mmol/L (136-145)
[2018-11-25] MEDS: HYDROcodone/Acetaminophen 5/325 mg Tablet PO PRN ×2 (10:00→19:59)
[2018-11-25] MEDS: Docusate 100 MG CAP PO SCH ×2 (10:01→19:59)
[2018-11-25] MEDS: Potassium Chloride 10 MEQ TAB PO SCH (10:01)
[2018-11-25] MEDS: Aspirin 325 mg Enteric Coated Tablet PO SCH (10:02)
[2018-11-25] MEDS: Furosemide 40 MG TAB PO SCH (10:02)
[2018-11-25] MEDS: Famotidine 20 MG TAB PO SCH ×2 (10:02→19:59)
[2018-11-25] MEDS: Famotidine/PF 20 mg/2ml Vial SLOW IVP SCH ×2 (10:02→19:59)
[2018-11-25] MEDS: Insulin Glargine 20 UNITS in Pre-Filled Syringe 1 EACH SC SCH (10:02)
--- NOTE | 2018-11-25 13:50 | PDOC.HOSPP ---
- Subjective Encounter Date: 11/25/18 Encounter Time: 09:48 Subjective: 64 y/o male with prior multiple CVA's, DM and others admitted due to intractable nausea and vomiting associated with AMS and ill feeling. Found to have hypotension, hyperglycemia blood glucose above 1000, WICHO and with elevated Lipase and troponin. Treated with IVF, pressors, and insulin infusion with improvement. Had cardiac cath which showed severe multiple vessel disease. Seen by CTS and subsequently had CABG on 11/22/2018. Doing well post operatively. Chest tube and gaitan catheter are off and now on the floor. Chest pain is getting better. No fever or SOB. - Objective Vital Signs & Weight: Vital Signs (12 hours) Temp Pulse Pulse Pulse Resp BP BP 11/25/18 12:00 98.6 F 95 16 11/25/18 09:05 124 H 97 139/78 129/72 11/25/18 07:25 100.1 F H 87 20 11/25/18 04:00 98.3 F 88 18 BP BP Pulse Ox Pulse Ox 11/25/18 12:00 121/52 L 97 11/25/18 09:05 99 11/25/18 07:25 121/68 99 11/25/18 04:00 90/52 L 100 Weight Admit Weight 179 lb 0.246 oz Weight 178 lb 3.2 oz Most Recent Monitor Data Heart Rate from ECG 92 NIBP 121/64 NIBP BP-Mean 83 Respiration from ECG 21 SpO2 100 I&O: 11/24/18 11/25/18 11/26/18 06:59 06:59 06:59 Intake Total 2297 820 240 Output Total 1350 500 Balance 947 320 240 Result Diagrams: 11/25/18 05:48 11/25/18 05:48 Additional Labs: Accuchecks 11/25/18 11/25/18 11/24/18 10:39 05:24 20:38 POC Glucose 285 H 84 308 H 11/24/18 17:11 POC Glucose 311 H ROS - Medication Medications: Active Medications Generic Name Dose Route Start Last Admin Trade Name Freq PRN Reason Stop Dose Admin Hydrocodone Bitart/Acetaminophen 2 tab 11/22/18 14:19 11/25/18 10:00 [place] 5/325 PO 2 tab Q4H PRN Administration Severe Pain (7-10) Aspirin 325 mg 11/25/18 09:00 11/25/18 10:02 Ecotrin PO 325 mg DAILY GABRIEL Administration Atorvastatin Calcium 40 mg 11/14/18 21:00 11/24/18 20:39 Lipitor PO 40 mg HS GABRIEL Administration Docusate Sodium 100 mg 11/22/18 21:00 11/25/18 10:01 Colace PO 100 mg BID GABRIEL Administration Famotidine 20 mg 11/22/18 21:00 11/25/18 10:02 Pepcid SLOW IVP Not Given Q12HR GABRIEL Famotidine 20 mg 11/24/18 21:00 11/25/18 10:02 Pepcid PO 20 mg BID GABRIEL Administration Furosemide 40 mg 11/25/18 09:00 11/25/18 10:02 Lasix PO 40 mg DAILY GABRIEL Administration Insulin Glargine 20 units/ 0.2 mls @ 0 mls/hr 11/24/18 09:00 11/25/18 10:02 Miscellaneous Medication SC 0.2 mls QAM GABRIEL Administration Insulin Human Regular 0 units 11/23/18 17:52 11/24/18 20:42 Humulin R SC 11 unit .AGGRESSIVE SLIDING PRN Administration AGGRESSIVE SLIDING SCALE Protocol Ondansetron HCl 4 mg 11/22/18 14:19 11/22/18 18:19 Zofran IVP 4 mg Q6H PRN Administration Nausea/Vomiting Potassium Chloride 10 meq 11/25/18 08:00 11/25/18 10:01 Klor-Con 10 PO 10 meq QAM-WM GABRIEL Administration Sertraline HCl 200 mg 11/15/18 09:00 11/25/18 10:01 Zoloft PO 200 mg DAILY GABRIEL Administration - Exam awake alert Eye: PERRL, anicteric sclera ENT: normocephalic atraumatic Neck: supple, symmetric, no JVD Heart: RRR Respiratory: no wheezes, no ronchi Respiratory - other findings: Fair air entry bilateraly with some transmitted sound. Gastrointestinal: soft, non-tender, non-distended, normal bowel sounds Extremities: no cyanosis, no edema Neurological: CN's grossly intact, no focal deficits Psychiatric: normal affect, A&O x 3 Hosp A/P (1) CAD (coronary artery disease) Code(s): I25.10 - ATHSCL HEART DISEASE OF [place] CORONARY ARTERY W/O ANG PCTRS Status: Acute Qualifiers: Coronary Disease-Associated Artery/Lesion type: [place] artery (2) Hypoglycemia due to insulin Code(s): E16.0 - DRUG-INDUCED HYPOGLYCEMIA WITHOUT COMA; T38.3X5A - ADVERSE EFFECT OF INSULIN AND ORAL HYPOGLYCEMIC DRUGS, INIT Status: Acute (3) Acute non-ST elevation myocardial infarction (NSTEMI) Code(s): I21.4 - NON-ST ELEVATION (NSTEMI) MYOCARDIAL INFARCTION Status: Acute (4) Hypotension Status: Acute (5) SIRS (systemic inflammatory response syndrome) Code(s): R65.10 - SIRS OF NON-INFECTIOUS ORIGIN W/O ACUTE ORGAN DYSFUNCTION Status: Acute (6) Elevated lipase Code(s): R74.8 - ABNORMAL LEVELS OF OTHER SERUM ENZYMES Status: Acute (7) Dehydration with hyponatremia Code(s): E87.1 - HYPO-OSMOLALITY AND HYPONATREMIA Status: Acute (8) WICHO (acute kidney injury) Code(s): N17.9 - ACUTE KIDNEY FAILURE, UNSPECIFIED Status: Acute (9) DKA (diabetic ketoacidoses) Code(s): E11.10 - TYPE 2 DIABETES MELLITUS WITH KETOACIDOSIS WITHOUT COMA Status: Acute (10) Hyperglycemia Code(s): R73.9 - HYPERGLYCEMIA, UNSPECIFIED Status: Acute (11) Hyperchloremic acidosis Code(s): E87.2 - ACIDOSIS Status: Acute (12) Acute metabolic encephalopathy Code(s): G93.41 - METABOLIC ENCEPHALOPATHY Status: Acute (13) Diabetes mellitus with hyperglycemia Code(s): E11.65 - TYPE 2 DIABETES MELLITUS WITH HYPERGLYCEMIA Status: Acute (14) S/P CABG (coronary artery bypass graft) Code(s): Z95.1 - PRESENCE OF AORTOCORONARY BYPASS GRAFT Status: Acute (15) Acute blood loss as cause of postoperative anemia Code(s): D62 - ACUTE POSTHEMORRHAGIC ANEMIA Status: Acute - Plan Increase lantus to 30 units. continue sliding scale insulin. Blood transfusion as per CTS Follow CBC and BMP Increase activity
[2018-11-25] MEDS ORDERED: Insulin Glargine 10 UNITS in Pre-Filled Syringe 1 EACH SC SCH (14:00)
--- NOTE | 2018-11-25 16:52 | PDOC.CTH ---
Cardiology Progress Note - Subjective Doing well. Walking with PT without issues. Passing gas but no BM yet. - Objective Vital Signs Temp Pulse Pulse Pulse Resp BP BP 11/25/18 12:00 98.6 F 95 16 11/25/18 09:05 124 H 97 139/78 129/72 11/25/18 07:25 100.1 F H 87 20 BP BP Pulse Ox Pulse Ox 11/25/18 12:00 121/52 L 97 11/25/18 09:05 99 11/25/18 07:25 121/68 99 Admit Weight 179 lb 0.246 oz Weight 178 lb 3.2 oz 11/24/18 11/25/18 11/26/18 06:59 06:59 06:59 Intake Total 2297 820 240 Output Total 1350 500 Balance 947 320 240 - Physical Examination General/Neuro: alert & oriented x3, NAD Neck: no JVD present Lungs: CTA, unlabored respirations Heart: RRR Abdomen: NT/ND Extremities: + edema B (trace) - Telemetry Telemetry Rhythm: NSR - Labs Result Diagrams: 11/25/18 05:48 11/25/18 05:48 Troponin/CKMB Troponin I 44.170 ng/mL (< 0.028) H* 11/14/18 04:35 - Assessment/Plan 1. Multivessel CAD. 2. S/P CABG x 4, HALL to LAD, SVG to IR, SVG to OM, SVG to PDA. 3. Type 1 diabetes. 4. DKA on admission 5. Non compliance. PLAN: - Stable for transfer to telemetry. - ASA/statin for life. - BP still borderline low for ACEI or BB. - Increase PT as tolerated.
[2018-11-25] MEDS: Insulin Regular 300 UNITS/3 ML VIAL SC PRN ×2 (18:24→20:42)
[2018-11-25] MEDS: Atorvastatin Calcium 40 MG TAB PO SCH (19:59)
[2018-11-26] MEDS: Aspirin 325 mg Enteric Coated Tablet PO SCH (08:08)
[2018-11-26] MEDS: Potassium Chloride 10 MEQ TAB PO SCH (08:08)
[2018-11-26] MEDS: Famotidine 20 MG TAB PO SCH ×2 (08:09→20:10)
[2018-11-26] MEDS: Furosemide 40 MG TAB PO SCH (08:09)
[2018-11-26] MEDS: Docusate 100 MG CAP PO SCH ×2 (08:09→20:10)
[2018-11-26] MEDS: Famotidine/PF 20 mg/2ml Vial SLOW IVP SCH ×2 (08:09→20:11)
[2018-11-26] MEDS ORDERED: Insulin Glargine 30 UNITS in Pre-Filled Syringe 1 EACH SC SCH (09:00)
[2018-11-26] MEDS ORDERED: Insulin Glargine 20 UNITS in Pre-Filled Syringe 1 EACH SC SCH (09:00)
[2018-11-26] MEDS ORDERED: Dextrose 5% in Water 1,000 ML IV PRN (09:04)
[2018-11-26] MEDS ORDERED: Dextrose 50% Abboject 50 ML SYRINGE SLOW IVP PRN (09:04)
[2018-11-26] MEDS: Iron Polysaccharides Complex 150 MG CAP PO SCH ×2 (11:12→20:10)
[2018-11-26] MEDS: HumaLOG 300 UNITS/3 ML VIAL SC PRN ×2 (11:18→17:31)
--- NOTE | 2018-11-26 15:16 | PDOC.HOSPP ---
- Subjective Encounter Date: 11/26/18 Encounter Time: 10:14 Subjective: 64 y/o male with prior multiple CVA's, DM and others admitted due to intractable nausea and vomiting associated with AMS and ill feeling. Found to have hypotension, hyperglycemia blood glucose above 1000, WICHO and with elevated Lipase and troponin. Treated with IVF, pressors, and insulin infusion with improvement. Had cardiac cath which showed severe multiple vessel disease. Seen by CTS and subsequently had CABG on 11/22/2018. Doing well post operatively. Chest tube and gaitan catheter are off and now on the floor. Had asymptomatic hypoglycemia earlier today. Blood glucose went up subsequently. patient got bedtime insulin last night. No fever or SOB. - Objective Vital Signs & Weight: Vital Signs (12 hours) Temp Pulse Pulse Pulse Resp BP BP 11/26/18 12:08 110 H 82 123/60 111/61 11/26/18 11:59 98.4 F 83 16 11/26/18 09:06 100 81 137/67 120/70 11/26/18 08:00 97.5 F L 85 18 11/26/18 04:00 97.0 F L 77 20 BP Pulse Ox Pulse Ox Pulse Ox 11/26/18 12:08 98 98 11/26/18 11:59 111/61 97 11/26/18 09:06 98 99 11/26/18 08:00 114/72 99 11/26/18 04:00 109/73 96 Weight Admit Weight 179 lb 0.246 oz Weight 183 lb Most Recent Monitor Data Heart Rate from ECG 92 NIBP 121/64 NIBP BP-Mean 83 Respiration from ECG 21 SpO2 100 I&O: 11/25/18 11/26/18 11/27/18 06:59 06:59 06:59 Intake Total 820 2080 Output Total 500 500 Balance 320 1580 Result Diagrams: 11/25/18 05:48 11/25/18 05:48 Additional Labs: Accuchecks 11/26/18 11/26/18 11/26/18 13:43 10:52 07:03 POC Glucose 306 H 350 H 130 H 11/26/18 11/25/18 11/25/18 05:37 20:14 16:55 POC Glucose 46 L* 343 H 399 H ROS - Medication Medications: Active Medications Generic Name Dose Route Start Last Admin Trade Name Freq PRN Reason Stop Dose Admin Hydrocodone Bitart/Acetaminophen 2 tab 11/22/18 14:19 11/25/18 19:59 [place] 5/325 PO 2 tab Q4H PRN Administration Severe Pain (7-10) Aspirin 325 mg 11/25/18 09:00 11/26/18 08:08 Ecotrin PO 325 mg DAILY GABRIEL Administration Atorvastatin Calcium 40 mg 11/14/18 21:00 11/25/18 19:59 Lipitor PO 40 mg HS GABRIEL Administration Docusate Sodium 100 mg 11/22/18 21:00 11/26/18 08:09 Colace PO 100 mg BID GABRIEL Administration Famotidine 20 mg 11/22/18 21:00 11/26/18 08:09 Pepcid SLOW IVP Not Given Q12HR GABRIEL Famotidine 20 mg 11/24/18 21:00 11/26/18 08:09 Pepcid PO 20 mg BID GABRIEL Administration Furosemide 40 mg 11/25/18 09:00 11/26/18 08:09 Lasix PO 40 mg DAILY GABRIEL Administration Insulin Glargine 20 units/ 0.2 mls @ 0 mls/hr 11/26/18 09:00 11/26/18 13:43 Miscellaneous Medication SC 0.2 mls QAM GABRIEL Administration Insulin Human Lispro 0 units 11/26/18 09:04 11/26/18 11:18 Humalog SC 11 unit .AGGRESSIVE SLIDING PRN Administration Aggressive [place] Scale Ondansetron HCl 4 mg 11/22/18 14:19 11/22/18 18:19 Zofran IVP 4 mg Q6H PRN Administration Nausea/Vomiting Polysaccharide Iron Complex 150 mg 11/26/18 09:00 11/26/18 11:12 Niferex PO Not Given BID [facility] Potassium Chloride 10 meq 11/25/18 08:00 11/26/18 08:08 Klor-Con 10 PO 10 meq QAM-WM GABRIEL Administration Sertraline HCl 200 mg 11/15/18 09:00 11/26/18 08:09 Zoloft PO 200 mg DAILY GABRIEL Administration - Exam awake alert Eye: anicteric sclera ENT: normocephalic atraumatic Neck: supple, symmetric, no JVD Heart: RRR, murmur present Respiratory: no rales, no ronchi Respiratory - other findings: fair air entry bilaterally with few transmitted sound. Gastrointestinal: soft, non-tender, non-distended, normal bowel sounds Extremities: no cyanosis, 1+ LE edema Neurological: CN's grossly intact, no focal deficits Psychiatric: normal affect, A&O x 3 Hosp A/P (1) CAD (coronary artery disease) Code(s): I25.10 - ATHSCL HEART DISEASE OF [place] CORONARY ARTERY W/O ANG PCTRS Status: Acute Qualifiers: Coronary Disease-Associated Artery/Lesion type: [place] artery (2) Hypoglycemia due to insulin Code(s): E16.0 - DRUG-INDUCED HYPOGLYCEMIA WITHOUT COMA; T38.3X5A - ADVERSE EFFECT OF INSULIN AND ORAL HYPOGLYCEMIC DRUGS, INIT Status: Acute (3) Acute non-ST elevation myocardial infarction (NSTEMI) Code(s): I21.4 - NON-ST ELEVATION (NSTEMI) MYOCARDIAL INFARCTION Status: Acute (4) Hypotension Status: Acute (5) SIRS (systemic inflammatory response syndrome) Code(s): R65.10 - SIRS OF NON-INFECTIOUS ORIGIN W/O ACUTE ORGAN DYSFUNCTION Status: Acute (6) Elevated lipase Code(s): R74.8 - ABNORMAL LEVELS OF OTHER SERUM ENZYMES Status: Acute (7) Dehydration with hyponatremia Code(s): E87.1 - HYPO-OSMOLALITY AND HYPONATREMIA Status: Acute (8) WICHO (acute kidney injury) Code(s): N17.9 - ACUTE KIDNEY FAILURE, UNSPECIFIED Status: Acute (9) DKA (diabetic ketoacidoses) Code(s): E11.10 - TYPE 2 DIABETES MELLITUS WITH KETOACIDOSIS WITHOUT COMA Status: Acute (10) Hyperglycemia Code(s): R73.9 - HYPERGLYCEMIA, UNSPECIFIED Status: Acute (11) Hyperchloremic acidosis Code(s): E87.2 - ACIDOSIS Status: Acute (12) Acute metabolic encephalopathy Code(s): G93.41 - METABOLIC ENCEPHALOPATHY Status: Acute (13) Diabetes mellitus with hyperglycemia Code(s): E11.65 - TYPE 2 DIABETES MELLITUS WITH HYPERGLYCEMIA Status: Acute (14) S/P CABG (coronary artery bypass graft) Code(s): Z95.1 - PRESENCE OF AORTOCORONARY BYPASS GRAFT Status: Acute (15) Acute blood loss as cause of postoperative anemia Code(s): D62 - ACUTE POSTHEMORRHAGIC ANEMIA Status: Acute - Plan Decrease lantus to 20 units. Start humalog 2 units with meals Continue sliding scale insulin but change to humalog. DC bedtime insulin therapy Blood transfusion as per CTS Follow CBC and BMP Increase activity D/W CTS team
[2018-11-26] MEDS: Carvedilol 3.125 MG TAB PO SCH (16:44)
[2018-11-26] MEDS: HYDROcodone/Acetaminophen 5/325 mg Tablet PO PRN ×2 (16:44→20:12)
[2018-11-26] MEDS: HumaLOG 300 UNITS/3 ML VIAL SC SCH (17:31)
[2018-11-26] MEDS: Atorvastatin Calcium 40 MG TAB PO SCH (20:10)
[2018-11-27 05:28] LABS: #Eosinphils 0.1 thou/uL (0.0-0.7); #Lymphocytes 2.1 thou/uL (1.20-3.40); #Monocytes 1.1 thou/uL (0.11-0.59); #Neutrophils 5.4 thou/uL (1.40-6.50); %Basophils 0.4 % (0.0-1.0); %Eosinophils 1.5 % (0.0-10.0); %Lymphocytes 24.2 % (21.0-51.0); %Monocytes 12.5 % (0.0-10.0); %Neutrophils 61.5 % (42.0-75.0); Hemoglobin 7.5 g/dL (14.0-18.0); Mean Corpuscular HGB CONC 33.9 g/dL (32.0-36.0); Mean Corpuscular Volume 97.2 fL (78.0-98.0); Mean Platelet Volume 7.8 fL (7.4-10.4); Platelet Count 311 thou/uL (130-400); Red Blood Cell (RBC) Count 2.29 mill/uL (4.70-6.10); White Blood Cell (WBC) Count 8.8 thou/uL (4.8-10.8)
[2018-11-27 05:48] LABS: Anion Gap 10 mmol/L (10-20); BUN (Urea Nitrogen) 10 mg/dL (8.4-25.7); Calc. Creatinine Clearance 129 mL/min (70-130); Calcium 8.1 mg/dL (7.8-10.44); Carbon Dioxide 26 mmol/L (23-31); Chloride 101 mmol/L (98-107); Estimated GFR-MDRD Greater than 90; Glucose 144 mg/dL (80-115); Magnesium 1.6 mg/dL (1.6-2.6); Potassium 4.2 mmol/L (3.5-5.1); Sodium 133 mmol/L (136-145)
[2018-11-27] MEDS: Potassium Chloride 10 MEQ TAB PO SCH (08:42)
[2018-11-27] MEDS: Furosemide 40 MG TAB PO SCH (08:42)
[2018-11-27] MEDS: Carvedilol 3.125 MG TAB PO SCH ×2 (08:42→17:22)
[2018-11-27] MEDS: Famotidine 20 MG TAB PO SCH (08:42)
[2018-11-27] MEDS: Docusate 100 MG CAP PO SCH (08:42)
[2018-11-27] MEDS: Aspirin 325 mg Enteric Coated Tablet PO SCH (08:42)
[2018-11-27] MEDS: Iron Polysaccharides Complex 150 MG CAP PO SCH (08:43)
[2018-11-27] MEDS: HumaLOG 300 UNITS/3 ML VIAL SC SCH ×3 (08:43→17:50)
[2018-11-27] MEDS: Famotidine/PF 20 mg/2ml Vial SLOW IVP SCH (08:44)
[2018-11-27] MEDS ORDERED: Insulin Glargine 24 UNITS in Pre-Filled Syringe 1 EACH SC SCH (09:00)
[2018-11-27] MEDS ORDERED: Magnesium Oxide 400 MG TAB PO SCH (09:00)
[2018-11-27 11:11] VITALS: BMI 25.7
[2018-11-27] MEDS: HumaLOG 300 UNITS/3 ML VIAL SC PRN (11:38)
[2018-11-27] MEDS ORDERED: Iron, Sodium Ferric Gluconate 250 MG in Sodium Chloride 0.9% 100 ML IVPB SCH (11:45)
[2018-11-27] MEDS: HYDROcodone/Acetaminophen 5/325 mg Tablet PO PRN (13:34)
[2018-11-27] MEDS ORDERED: Lisinopril 2.5 MG TAB PO SCH ×2 (14:00)
[2018-11-27 15:34] VITALS: TEMP 98.6
--- NOTE | 2018-11-27 15:36 | PRG ---
DATE OF SERVICE: 11/27/2018 SUBJECTIVE: Michel Marks has no complaints. He is ambulating without difficulty without chest pain. OBJECTIVE: VITAL SIGNS: He is afebrile. Heart rate is 80, respiratory rate . LUNGS: Clear. HEART: Regular rhythm. ABDOMEN: Soft and nontender. EXTREMITIES: Without edema. LABORATORY DATA: White count 18, hemoglobin 7.5, and platelets 311,000. Electrolytes are normal. IMPRESSION: 1. Status post coronary artery bypass grafting. 2. Myocardial infarction. 3. Hyperosmolar coma, on presentation. 4. Diabetic ketoacidosis, on presentation. 5. History of medical noncompliance. 6. Moderate obstructive lung disease by preop pulmonary function tests, not had any issues with lung function perioperative period. He continues to be stable. He tells me Job ID: [id number]
[2018-11-27 17:14] VITALS: BP 124/70
--- NOTE | 2018-11-27 18:09 | DIS ---
DATE OF ADMISSION: 11/14/2018 DATE OF DISCHARGE: 11/27/2018 PRIMARY CARE PHYSICIAN: None. DISCHARGE DIAGNOSES: 1. Diabetic ketoacidosis. 2. Acute non-ST elevation myocardial infarction. 3. Systemic inflammatory response syndrome. 4. Acute metabolic encephalopathy. 5. Hypertension. 6. Multiple vessel disease, coronary artery disease. 7. Insulin-induced hypoglycemia. 8. Dehydration with hyponatremia. 9. Hyperchloremic metabolic acidosis. 10. Diabetes mellitus with hyperglycemia. 11. Acute blood loss anemia as a cause of postoperative anemia. 12. Status post coronary artery bypass graft. 13. Ischemic cardiomyopathy. 14. Elevated lipase. 15. Physical deconditioning. CONSULTS: 1. Pulmonary and Critical Care. 2. Cardiology. 3. Cardiothoracic Surgery. PROCEDURES PERFORMED: 1. Cardiac catheterization. 2. Coronary artery bypass graft with left internal mammary artery to distal left anterior descending and reverse greater saphenous vein graft from the aorta to the ramus intermedius and aorta to the obtuse marginal and a retarded posterior descending artery. HOSPITAL COURSE: A 63-year-old male patient with prior multiple comorbidities including prior multiple CVAs, diabetes mellitus, and chronic tobacco abuse, amongst others, who was admitted due to intractable nausea and vomiting associated with mental status change and ill feeling. The patient on presentation to the ER was found to have hypotension, hyperglycemia with blood glucose above 1000, acute elevation in creatinine and lipase as well as troponin. Impression of DKA as well as acute myocardial infarction and possible sepsis was made and the patient was started on insulin infusion and IV fluids with improvement. Diabetic ketoacidosis resolved as well as acute kidney injury. The patient later had cardiac cath, which showed severe multiple vessel disease. Cardiothoracic Surgery consult was obtained and the patient subsequently had coronary artery bypass graft on November 22, 2018. Postoperative recovery was uneventful, and chest tube and Garcia catheter were subsequently taken off and the patient transferred to the floor. While on insulin therapy, the patient had hypoglycemia, which was asymptomatic and this was felt to be due to the further, the patient received bedtime insulin and this was discontinued and there was no further hypoglycemia. The patient remained stable and was subsequently discharged home to follow up in the clinic. Note that, the patient has no insurance and PCP and was subsequently helped with 30 days of medications. He is also to follow up at the local resource clinic. He is also to follow up at the cardio rehab. PHYSICAL EXAMINATION: VITAL SIGNS: Temperature 98.6, pulse 86, respiratory rate 18, SpO2 of 97 on room air, and blood pressure is 124/70. GENERAL: Middle-age male, in no obvious distress. Afebrile. Anicteric. Acyanotic. HEENT: Normocephalic and atraumatic. Oral mucosa is moist. CARDIOVASCULAR: Regular rhythm and rate with normal heart sounds one and two. Soft systolic murmur is noted. RESPIRATORY: Fair air entry bilateral with some transmitted sounds. There is no use of accessory muscles. GI: Full, soft, nontender, and nondistended with normal bowel sounds. EXTREMITIES: Mild left leg edema noted. NEUROLOGIC: Conscious, alert, and oriented x3 with appropriate mental status. DISCHARGE DISPOSITION: Home. DISCHARGE CONDITION: Improved. DISCHARGE FOLLOW-UP: 1. With [facility] on November 29 at 1:45 p.m. 2. With [place] outpatient cardiac rehab. 3. With [facility] in one day. 4. With Dr. Greg Fuchs, on December 27, 2018 at [address] Soy Jasso, on December 13 at 2 p.m. DISCHARGE MEDICATIONS: 1. Hydrocodone 5/325 q.6 p.r.n. for pain. 2. Gabapentin 100 mg p.o. daily. 3. Sertraline 200 mg p.o. daily at bedtime. 4. Nitroglycerin 0.4 mg sublingual p.r.n. for chest pain. 5. Acetaminophen 650 mg q.6 p.r.n. for pain. 6. Aspirin 325 mg p.o. daily. 7. Lipitor 40 mg daily at bedtime. 8. Coreg 3.125 mg p.o. b.i.d. 9. Lasix 40 mg p.o. daily. 10. Lantus 30 units subcutaneously daily. 11. Regular insulin 0 to 18 units p.r.n. for hyperglycemia according to provided sliding scale. 12. Niferex iron polysaccharide complex 150 mg p.o. b.i.d. 13. Lisinopril 2.5 mg p.o. daily. 14. Magnesium oxide 400 mg p.o. b.i.d. 15. Potassium chloride 10 mEq p.o. daily. TIME SPENT: This discharge took more than 40 minutes. Job ID: [id number]
--- NOTE | 2018-11-29 10:01 | PFT ---
PATIENT HISTORY: HEIGHT: 73 WEIGHT:186 SMOKER: YES HOW LON PACKS PER DAY 2 PRODUCTIVE COUGH: NO LUNG DISEASE: PHYSICIAN INTERPRETATION FINAL REPORT: Patient had good effort and good cooperation This is an IN patient study PFT data: FVC 4.17 (85%), FEV1 2.79 (75%), FEV1/FVC 0.67 There is a slight reduction to the FEV1 the ratio is just below the lower limits of normal consistent with obstructive airflow limitation. Bronchodilator challenge was not performed. IMPRESSION: Overall, these pulmonary function studies are most consistent with mild obstructive lung disease. Interpert the results with caution as this is an in patient study. Core Cutter: ELMA Cable Tv Installer: ELMA SCHULTZ
== END 2018-11-27 19:05 | disposition home or self-care (01) | DRG 233 ==
LOC: ERS 00:35 → CCU 03:14 → 2NO 11-16 18:23 → CCU 11-22 10:29 → 2NO 11-24 15:14
PROVIDERS: ADMIT Internal Medicine; ATTEND Internal Medicine
PROC: 4A023N7 Measurement of Cardiac Sampling and Pressure, Left Heart, Percutaneous Approach (ICD-10-PCS; principal; 2018-11-14)
PROC: B2111ZZ Fluoroscopy of Multiple Coronary Arteries using Low Osmolar Contrast (ICD-10-PCS; 2018-11-14)
PROC: B2151ZZ Fluoroscopy of Left Heart using Low Osmolar Contrast (ICD-10-PCS; 2018-11-14)
PROC: 02100Z9 Bypass Coronary Artery, One Artery from Left Internal Mammary, Open Approach (ICD-10-PCS; 2018-11-22)
PROC: 021209W Bypass Coronary Artery, Three Arteries from Aorta with Autologous Venous Tissue, Open Approach (ICD-10-PCS; 2018-11-22)
PROC: 06BQ4ZZ Excision of Left Saphenous Vein, Percutaneous Endoscopic Approach (ICD-10-PCS; 2018-11-22)
PROC: 5A1221Z Performance of Cardiac Output, Continuous (ICD-10-PCS; 2018-11-22)
PROC: 5A1223Z Performance of Cardiac Pacing, Continuous (ICD-10-PCS; 2018-11-22)
PROC: B24BZZ4 Ultrasonography of Heart with Aorta, Transesophageal (ICD-10-PCS; 2018-11-22)
DX: I21.4 Non-ST elevation (NSTEMI) myocardial infarction (principal); E11.01 Type 2 diabetes mellitus with hyperosmolarity with coma; E11.11 Type 2 diabetes mellitus with ketoacidosis with coma; G93.41 Metabolic encephalopathy; E11.641 Type 2 diabetes mellitus with hypoglycemia with coma; N17.9 Acute kidney failure, unspecified; R65.10 Systemic inflammatory response syndrome (SIRS) of non-infectious origin without acute organ dysfunction; D62 Acute posthemorrhagic anemia; E87.1 Hypo-osmolality and hyponatremia; K21.9 Gastro-esophageal reflux disease without esophagitis; F32.9 Major depressive disorder, single episode, unspecified; F17.210 Nicotine dependence, cigarettes, uncomplicated; I25.10 Atherosclerotic heart disease of native coronary artery without angina pectoris; E86.0 Dehydration; N18.9 Chronic kidney disease, unspecified; E11.22 Type 2 diabetes mellitus with diabetic chronic kidney disease; E11.65 Type 2 diabetes mellitus with hyperglycemia; I25.5 Ischemic cardiomyopathy; R74.8 Abnormal levels of other serum enzymes; T38.3X5A Adverse effect of insulin and oral hypoglycemic [antidiabetic] drugs, initial encounter; Z86.73 Personal history of transient ischemic attack (TIA), and cerebral infarction without residual deficits; Z90.89 Acquired absence of other organs; Z79.899 Other long term (current) drug therapy; Z91.14 Patient's other noncompliance with medication regimen; Z79.4 Long term (current) use of insulin; I12.9 Hypertensive chronic kidney disease with stage 1 through stage 4 chronic kidney disease, or unspecified chronic kidney disease
CPT/HCPCS: 36415; 36416; 36430; 70450; 70498; 71045; 71046; 76705; 76770; 80048; 80076; 80202; 80306; 81001; 82010; 82550; 83036; 83605; 83690; 83735; 83880; 83930; 84100; 84484; 85025; 85610; 85730; 86850; 86900; 86901; 87040; 87086; 93005; 93010; 93306; 93458; 93798; 93880; 94010; 94727; 99152; C1769; J0131; J1642; J1644; J1650; J1815; J1885; J1940; J2001; J2250; J2270; J2370; J2405; J2543; J2916; J3010; J3370; J3480; J3490; J7050; P9045; Q9967; S0028